=== PATIENT | male | born 1995 | race Caucasian/White ===

== ENCOUNTER 2024-03-14 10:07 | Emergency (ER) | payer SELFPAY ==
[2024-03-14] VITALS (7 sets, daily range): BP systolic 107–128; BP diastolic 60–85; PULSE 50–76; RESP 13–20; TEMP 36.4–36.9; O2SAT 96–100; BMI 23.1
[2024-03-14] MEDS: EPINEPHrine 1 MG/ML VIAL 0.3 MG IM ×2 (10:22→13:45)
[2024-03-14] MEDS: Famotidine/PF 20 MG/2 ML VIAL IVPUSH (10:23)
[2024-03-14] MEDS: diphenhydrAMINE HCL 50 MG/ML VIAL IVPUSH (10:23)
[2024-03-14] MEDS: methylPREDNISolone Sod Succ 125 MG/2 ML VIAL IVPUSH (10:23)
--- NOTE | 2024-03-14 10:24 | ED_ITS ---
HPI - General Adult General Chief complaint: Allergic Reaction Stated complaint: bee sting allergic reaction Time Seen by Provider: 03/14/24 10:20 Source: patient Mode of arrival: ambulatory Limitations: no limitations History of Present Illness ED Provider: garth [facility] narrative: Patient is a 28-year-old male with history of bee sting allergy presenting to the emergency department with complaint of lower lip swelling after being stung by a bee approximately 5 minutes prior to arrival. Patient states that he was doing marianna and drinking soda out of a can. When he picked up the soda can to take a drink, there was a be inside the can that he did not see and it stung him on the inside of his bottom lip. Patient swelling. He denies any shortness of breath, abdominal pain, nausea, chest pain, or hives. MD complaint: angioedema Onset (ago): minute(s) Location: mouth Treatments prior to arrival: none Related Data Previous Rx's ?Medication ?Instructions ?Recorded epinephrine 0.3 mg/0.3 mL 0.3 mg (0.3 mL) IM Q4H PRN 03/14/24 injection, auto-injector (EpiPen) anaphylaxis #2 ea prednisone 20 mg tablet 40 mg (2 x 20 mg) PO DAILY #10 tabs 03/14/24 Allergies Allergy/AdvReac Type Severity Reaction Status Date / Time bee pollen [bee stings] Allergy Facial Verified 03/14/24 10:11 Swelling Review of Systems Review of Systems: As per HPI. Yes all other systems are reviewed and are negative Constitutional: Constitutional: Reports as per HPI PMF Social History Social History Advance Directives: No Advance Directives Information Provided: No Physical Exam ED Vital Signs: Vital Signs - 24 hr 03/14/24 10:09 03/14/24 10:22 03/14/24 10:23 Temperature 97.6 F 97.9 F Pulse Rate 76 62 63 Respiratory Rate 16 18 Blood Pressure 128/85 126/72 126/72 Pulse Oximetry 96 99 Oxygen Delivery Method Room Air Room Air 03/14/24 12:00 03/14/24 13:45 03/14/24 14:49 Temperature 98.4 F 98.5 F Pulse Rate 63 50 66 Respiratory Rate 20 13 Blood Pressure 107/60 115/65 127/71 Pulse Oximetry 100 100 Oxygen Delivery Method Room Air Room Air BMI result Body Mass Index 23.1 Vital signs have been reviewed and appear to be correct. Blood pressure normal. Heart rate normal. Respiratory rate normal. Temperature normal. Oxygen saturation normal. Const General: cooperative, healthy appearing and no acute distress Orientation/consciousness: oriented to person, oriented to place, oriented to time and patient oriented x3 Limitations: no limitations [facility] Head: Yes normocephalic and Yes atraumatic Ears: external ears normal General nose exam: Normal external nose present Face and sinus: Yes face symmetric Mouth: oropharynx normal, moist mucous membranes, lip abnormal lower swelling (R>L) and tongue abnormal (mild swelling left distal tip) Throat: Yes posterior oropharynx normal, Yes uvula midline and No uvular edema Eyes Pupils: Equal, round and reactive pupils present Neck Neck: Yes normal visual inspection and Yes supple Resp Effort & Inspection: normal respiratory effort and able to speak in complete sentences Auscultation: clear to auscultation bilaterally Cardio Rate: regular rate Rhythm: regular rhythm Heart sounds: S1 normal heart sound present and S2 normal heart sound present GI Palpation (GI): Soft to palpation and nontender Auscultation: normoactive bowel sounds General: Yes no CVA tenderness Back/Spine/Pelvis Back: no CVA tenderness Skin General skin exam: elasticity normal and turgor normal Rashes: no rashes Neuro General: oriented to person, oriented to place, oriented to time, patient oriented x3, moves all extremities, no focal motor deficits and CN's II-XI intact bilaterally Cranial nerves: Yes Equal, round and reactive pupils present Cognition (Neuro): normal cognition Extrem General: Yes full ROM, Yes no pedal edema and Yes no calf tenderness Psych Mental Status: mental status grossly normal Affect: normal affect Thought process: Normal thought process present Medications Administered Discontinued Medications Generic Name Dose Route Start Last Admin Trade Name Freq PRN Reason Stop Dose Admin Diphenhydramine HCl 50 mg 03/14/24 10:20 03/14/24 10:23 Diphenhydramine Hcl 50 Mg/Ml Vial IVPUSH 03/14/24 10:21 50 mg ONCE ONE Administration Epinephrine 0.3 mg 03/14/24 10:20 03/14/24 10:22 Epinephrine 1 Mg/Ml Vial IM 03/14/24 10:21 0.3 mg STAT STA Administration Epinephrine 0.3 mg 03/14/24 13:32 03/14/24 13:45 Epinephrine 1 Mg/Ml Vial IM 03/14/24 13:33 0.3 mg STAT STA Administration Famotidine 20 mg 03/14/24 10:20 03/14/24 10:23 Famotidine/Pf 20 Mg/2 Ml Vial IVPUSH 03/14/24 10:21 20 mg ONCE ONE Administration Methylprednisolone Sodium Succinate 125 mg 03/14/24 10:20 03/14/24 10:23 Methylprednisolone Sod Succ 125 Mg/2 Ml Vial IVPUSH 03/14/24 10:21 125 mg ONCE ONE Administration Methylprednisolone Sodium Succinate 60 mg 03/14/24 13:32 03/14/24 13:44 Methylprednisolone Sod Succ 125 Mg/2 Ml Vial IVPUSH 03/14/24 13:33 60 mg ONCE ONE Administration Medical Decision Making Medical Decision Making [facility] Narrative: Patient is a 28-year-old male with history of bee sting allergy presenting to the emergency department with complaint of lower lip swelling after being stung by a bee approximately 5 minutes prior to arrival. On exam patient has significant angioedema to lower lip, R>L, mild swelling to left distal tip of tongue, is awake, A+Ox3, VS WNL, afebrile, normal neurological exam without focal deficits, physical exam findings as above. Patient brought directly into exam room and medicated with epinephrine, diphenhydramine, famotidine and methylprednisolone. Ice pack applied to lower lip. Given reported symptoms and physical exam findings, initial differential includes anaphylaxis, localized allergic reaction. 10:30 Edema progressing from right lower lip across to left lower lip, no upper lip edema, no uvula edema. 10:45 Minimal progression of edema, no new edema to tongue, no uvula edema, lungs clear throughout. 13:33 Patient continues to have lower lip angioedema but decreased swelling noted to tongue and patient reports he feels more comfortable. Evaluated with Dr. Daily at bedside. He recommends additional epi and solu-medrol, observation until angioedema improves. Patient placed on physician observation at this time. 15:00 Patient states symptoms have continued to improve and is requesting discha rge home. Significant improvement of lower lip angioedema, and tongue swelling, lungs clear. Dr. Daily agreeable with discharge. Prescriptions sent for Epi- pen as well as steroids. Advised patient to take daily antihistamine for the next week. Return precautions disucssed. Patient verbalized understanding of and agreement with plan. Observation care revealed that patient does not meet medical necessity for hospitalization. Final disposition discussed with patient. The patient completed observation care at 15:02, total time in observation care was 1.5 hours. Differential Diagnosis Differential Diagnoses: The differential diagnosis associated with the presentation includes As per MDM. Admission/Observation Consideration of admission/observation: Escalation of care including admission/observation considered Patient would have been admitted to the hospital had their work up had any findings where hospital admission was appropriate and their clinical presentation warranted hospital admission. External Record Review External record reviewed: Inpatient record, Office record and Outpatient record Prescription Management I considered prescription management with: Other Discharge Plan Discharge Clinical Impression: Angioedema, Anaphylaxis Patient Disposition: Home, Self-Care Instructions: Insect Bite or Sting (ED), Anaphylaxis (ED), Angioedema (ED) Additional Instructions: You were evaluated in the emergency department today for an allergic reaction following a bee sting. Your symptoms improved with medications while in the emergency department. You are being prescribed an EpiPen for home. You are also being prescribed a course of steroids to decrease inflammation. We recommend that you take a daily antihistamine such as cetirizine (Zyrtec) or loratadine (Claritin) for the next week. Return to the emergency department or call 911 immediately if you develop worsening swelling to your lips or tongue, difficulty breathing or shortness of breath, chest pain, abdominal pain, nausea or vomiting, rash or any other concerning symptoms. Prescriptions: New epinephrine [EpiPen] 0.3 mg/0.3 mL auto-injector 0.3 mg IM Q4H PRN (Reason: anaphylaxis) Qty: 2 0RF prednisone 20 mg tablet 40 mg PO DAILY Qty: 10 0RF Print Language: Estonian
--- NOTE | 2024-03-14 11:43 | PC.NURSE ---
multiple nursing checks made, pt stating he is starting to feel better, swelling does not seem to be progressing at this time
--- NOTE | 2024-03-14 12:26 | MHC.EDTECH ---
This tech checked pt vital signs, pt resting quietly, no appearing distress, no SOB, denied difficulty breathing, call lopez within reach.
--- NOTE | 2024-03-14 13:40 | MHC.EDTECH ---
This tech went to check on pt status, pt resting quietly, stated he feels way better . Call lopez within reach.
[2024-03-14] MEDS: methylPREDNISolone Sod Succ 125 MG/2 ML VIAL 60 MG IVPUSH (13:44)
== END 2024-03-14 15:29 | disposition home or self-care (01) ==
PROVIDERS: Emergency Provider Student in an Organized Health Care Education/Training Program
DX: T78.3XXA Angioneurotic edema, initial encounter (principal); T78.2XXA Anaphylactic shock, unspecified, initial encounter; X58.XXXA Exposure to other specified factors, initial encounter
CPT/HCPCS: 96372; 99284; J0171; J1200; J2919

== ENCOUNTER 2024-03-26 07:18 | Emergency (ER) | payer SELFPAY ==
[2024-03-26 07:24] VITALS: BP 121/68; PULSE 71; RESP 16; TEMP 36.8; O2SAT 97; BMI 23.5
--- NOTE | 2024-03-26 07:34 | PC.NURSE ---
patient present ambulatory with steady gait through external triage, states he was stung by a bee at work yesterday, used epipen however woke up this morning with swelling to his face still. patient states he has not used his epi pen since yesterday, denies any airway obstruction or shortness of breath, patient voice clear, no hoarsness noted, no tongue swelling, patient states he took motrin for the pain in his face, but has not taken any other medications for his reaction. patient states he was also stung by a bee on sunday and was seen in this ED for the same, states the swelling didn't completely go away but now it is worse again after being stung yesterday. 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 18g PIV placed in RAC. awaiting MD hickey
--- NOTE | 2024-03-26 07:45 | ED_ITS ---
HPI - Allergic Reaction General Chief complaint: Allergic Reaction Stated complaint: swelling in neck and eye. 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 Yesterday at work he was stung on L side of spiritism and administered epi pen. He states he it worked except his L eye and side of face is still swollen. He denies dyspnea, difficulty swallowing or breathing, voice changes. He needs another epi pen. MD complaint: facial swelling Onset (ago): day(s) (1) Exposure: insect bite Symptoms: facial swelling Severity: moderate Treatment prior to arrival: epinephrine Previous Allergic Reaction History: anaphylaxis Related Data Previous Rx's ?Medication ?Instructions ?Recorded epinephrine 0.3 mg/0.3 mL 0.3 mg (0.3 mL) IM Q4H PRN 03/14/24 injection, auto-injector (EpiPen) anaphylaxis #2 ea prednisone 20 mg tablet 40 mg (2 x 20 mg) PO DAILY #10 tabs 03/14/24 cetirizine 10 mg tablet 10 mg PO DAILY PRN allergy 03/26/24 symptoms #30 tabs epinephrine 0.3 mg/0.3 mL 0.3 mg (0.3 mL) IM Q10M PRN 03/26/24 injection, auto-injector anaphylaxis #2 ea prednisone 20 mg tablet 40 mg (2 x 20 mg) PO DAILY 5 days 03/26/24 #10 tabs Allergies Allergy/AdvReac Type Severity Reaction Status Date / Time bee pollen [bee stings] Allergy Facial Verified 03/26/24 07:27 Swelling Review of Systems Review of Systems: Constitutional : No Fever, No Chills, No Fatigue ENT/Mouth : No sore throat, No Rhinorrhea, pos L side of face swelling Eyes: No Eye Pain, pos Swelling, No Redness Cardiovascular : No Chest Pain, No SOB, No Dyspnea on Exertion Respiratory : No Cough, No Sputum Gastrointestinal : No Nausea, No Vomiting, No Diarrhea, No abdominal Pain Genitourinary : No Dysuria, No Urinary Frequency, No Hematuria, Musculoskeletal : No joint pain, No Myalgias, No Joint Swelling Skin : No Skin Lesions, No rash Neuro : No Weakness, No Numbness, No Dizziness, no Headache All other systems reviewed and are negative [facility] Past Medical History Attestation statement: The following information was validated with the patient. Source: old records reviewed Medical History Allergic reaction Social History Social History Smoked in Last 30 Days: Yes Substance Use Type: Marijuana Physical Exam ED Vital Signs: Vital Signs - 24 hr 03/26/24 07:24 Temperature 98.3 F Pulse Rate 71 Respiratory Rate 16 Blood Pressure 121/68 Pulse Oximetry 97 Oxygen Delivery Method Room Air BMI result Body Mass Index 23.5 Appearance: Alert. Oriented X3. No acute distress. Eyes: Pupils equal, round and reactive to light. swelling L periorbital eye moderate bite felt on L spiritism area no redness, heat, drainage from eye no signs of infection ENT: Pharynx normal. no swelling Neck: Normal inspection. Neck supple. CVS: Normal heart rate and rhythm. Pulses normal. Respiratory: No respiratory distress. Breath sounds normal. Abdomen: Soft and nontender. Skin: Skin warm and dry. Normal skin color. Normal skin turgor. Extremities: No lower extremity edema. No calf ttp Neuro: Oriented X 3. No motor deficit. No sensory deficit. Medical Decision Making Medical Decision Making [facility] Narrative: 28 yo male with localized swelling near bee sting no resp issues no airway issues not toxic will start on zyrtec and prednisone DC on epi pen discussed reasons to return and to no get stung again - he is aware of plan. stable for DC no signs of infection Differential Diagnosis Differential Diagnoses: The differential diagnosis associated with the presentation includes localized reaction no signs of infection at this time Independent Historian Clinical information obtained from an independent historian. History obtained from or confirmed by: Spouse External Record Review External record reviewed: Outpatient record Prescription Management I considered prescription management with: Other (epi pen zyrtec prednisone) Discharge Plan Discharge Clinical Impression: Allergic reaction Patient Disposition: Home, Self-Care Instructions: General Allergic Reaction (ED) Additional Instructions: it is important you do not get stung in the next 48 hours starting window tomorrow return here for increased redness, fevers, yellow drainage from the eye start medications this evening around dinner carry epi pen with you at all time Prescriptions: New cetirizine 10 mg tablet 10 mg PO DAILY PRN (Reason: allergy symptoms) Qty: 30 0RF prednisone 20 mg tablet 40 mg PO DAILY 5 Days Qty: 10 0RF epinephrine 0.3 mg/0.3 mL auto-injector 0.3 mg IM Q10M PRN (Reason: anaphylaxis) Qty: 2 0RF Rx Instructions: for 2 doses No Action epinephrine [EpiPen] 0.3 mg/0.3 mL auto-injector 0.3 mg IM Q4H PRN (Reason: anaphylaxis) Qty: 2 0RF prednisone 20 mg tablet 40 mg PO DAILY Qty: 10 0RF Stand Alone Forms: Work/School Release Print Language: Sami
[2024-03-26] MEDS: methylPREDNISolone Sod Succ 125 MG/2 ML VIAL 60 MG IVPUSH (07:50)
[2024-03-26 07:54] VITALS: BP 113/68; PULSE 74; RESP 17; TEMP 36.9; O2SAT 97
[2024-03-26 07:55] VITALS: BP 113/68; PULSE 74; RESP 17; O2SAT 97
== END 2024-03-26 07:58 | disposition home or self-care (01) ==
PROVIDERS: Emergency Provider Emergency Medicine
DX: T63.441A Toxic effect of venom of bees, accidental (unintentional), initial encounter (principal); Y92.9 Unspecified place or not applicable; R22.1 Localized swelling, mass and lump, neck; Z79.899 Other long term (current) drug therapy
CPT/HCPCS: 96374; 99284; J2919

== ENCOUNTER 2024-07-20 14:21 | Emergency (ER) | payer MEDICAID, SELFPAY ==
--- NOTE | ~2024-07-20 | XR_ITS ---
EXAMINATION: XR KNEE, LEFT CLINICAL INFORMATION: injury, pain COMPARISON: None available. TECHNIQUE: Four views of the left knee. FINDINGS: No fracture or joint effusion. Alignment is anatomic. Joint spaces are maintained. No abnormal soft tissue calcification. XR/XR knee LT 3V IMPRESSION: Normal left knee. Electronically signed by: Philly Butler MD 07/20/2024 03:41 PM EST
[2024-07-20 14:39] VITALS: BP 130/72; PULSE 96; RESP 18; TEMP 36.8; O2SAT 98; BMI 27.4
--- NOTE | 2024-07-20 14:40 | ED.LOWEXIN ---
HPI - Extremity Injury (Lower) General Chief Complaint: Extremity Injury, Lower Stated Complaint: knee inj Time Seen by Provider: 07/20/24 16:25 Source: patient Mode of arrival: ambulatory Limitations: no limitations History of Present Illness ED Provider: Tyrone Barrientos HPI Narrative: 29-year-old male presents to ED for right knee pain since last night. Patient states he was playing softball at night and while going for the ball on another player slid into his left knee and made his left knee buckled. Patient states ever since pain not able to bear weight on knee. Patient states also some ecchymosis Related Data Previous Rx's ?Medication ?Instructions ?Recorded epinephrine 0.3 mg/0.3 mL 0.3 mg (0.3 mL) IM Q4H PRN 03/14/24 injection, auto-injector (EpiPen) anaphylaxis #2 ea prednisone 20 mg tablet 40 mg (2 x 20 mg) PO DAILY #10 tabs 03/14/24 cetirizine 10 mg tablet 10 mg PO DAILY PRN allergy 03/26/24 symptoms #30 tabs epinephrine 0.3 mg/0.3 mL 0.3 mg (0.3 mL) IM Q10M PRN 03/26/24 injection, auto-injector anaphylaxis #2 ea prednisone 20 mg tablet 40 mg (2 x 20 mg) PO DAILY 5 days 03/26/24 #10 tabs naproxen 500 mg tablet 500 mg PO BID PRN pain 7 days #14 07/20/24 tabs Allergies Allergy/AdvReac Type Severity Reaction Status Date / Time bee pollen [bee stings] Allergy Facial Verified 07/20/24 14:41 Swelling Review of Systems Review of Systems: Left knee pain Yes all other systems are reviewed and are negative PMFSH Past Medical History Medical History Allergic reaction Social History Social History Substance Use Type: Marijuana Advance Directives: No Advance Directives Information Provided: No Physical Exam Vital Signs: Vital Signs: Last Vital Signs Temp 98.3 F 07/20/24 17:02 Pulse 96 07/20/24 17:02 Resp 18 07/20/24 17:02 BP 130/72 07/20/24 17:02 Pulse Ox 98 07/20/24 17:02 O2 Del Method Room Air 07/20/24 17:02 BMI result Body Mass Index 27.4 Const: General: cooperative, healthy appearing, comfortable, no acute distress, well developed, alert, awake and Physically active Orientation/consciousness: patient oriented x3 HEENT: Head: Yes normal to inspection, Yes No palpable skull fracture present and Yes normocephalic Eyes: General: appearance normal, both eyes and all related structures Neck: Neck: Yes normal visual inspection, Yes full ROM, Yes no lymphadenopathy, Yes no meningeal signs, Yes trachea midline, Yes supple, No anterior neck swelling and No tender Chest: Chest palpation & inspection: normal inspection of the chest and normal palpation of entire chest wall Resp: Effort & Inspection: normal respiratory effort and able to speak in complete sentences Auscultation: clear to auscultation bilaterally Cardio: Jugular venous distension: no JVD Heart sounds: S1 normal heart sound present and S2 normal heart sound present GI: Inspection: Yes normal to inspection Palpation (GI): Soft to palpation, not firm, nontender, no guarding and not rigid : General: Yes no CVA tenderness Back/Spine/Pelvis: Back: no CVA tenderness and No back tenderness Skin: General skin exam: no rashes or lesions noted, elasticity normal and turgor normal Neuro: General: patient oriented x3, gait normal, tone normal, moves all extremities, Normal light touch and pain sensation, no meningeal signs, no focal motor deficits, CN's II-XI intact bilaterally and normal sensation to monofilament Extrem: General: Yes normal to inspection, Yes full ROM and Yes capillary refill normal Knee images: 1. Positive for tenderness ecchymosis on palpation. Knee in place. Negative for stiffness, erythema, or warmth. Rest of extremity normal. Motor/neuro/vascular exam Psych: Appearance: grossly normal, well kempt and not disheveled Course Course Course Narrative: This is a rapid medical exam. Deferred additional HPI, ROS, PE to primary provider. 29 yo male here with left knee after direct hit while playing softball. Will check x-rays LOULOU Black APRN Medications Administered Discontinued Medications Generic Name Dose Route Start Last Admin Trade Name Freq PRN Reason Stop Dose Admin Ketorolac Tromethamine 30 mg 07/20/24 16:49 07/20/24 16:54 Ketorolac Tromethamine 30 Mg/Ml Vial IM 07/20/24 16:50 30 mg ONCE ONE Administration Prednisone 40 mg 07/20/24 16:49 07/20/24 16:55 Prednisone 20 Mg Tablet PO 07/20/24 16:50 40 mg ONCE ONE Administration Medical Decision Making Medical Decision Making MDM Narrative: 29-year-old male presents to the ED for left knee pain after injury. Patient denies any headache or any other complaints. Knee and rest of extremity exam negative for signs of septic joint, compartment syndrome, DVT, arterial occlusion, osteomyelitis, cellulitis, or necrotizing fasciitis. Rest of extremity normal. Knee x-ray negative for any fracture. Patient explained he most likely will need outpatient MRI to rule out any ligament meniscus tear. Patient explained worrisome signs and informed to return to the ED immediately. Differential Diagnosis Differential Diagnoses: The differential diagnosis associated with the presentation includes (Knee sprain, knee fracture knee dislocation) Admission/Observation Consideration of admission/observation: Escalation of care including admission/observation considered Independent Historian Clinical information obtained from an independent historian. History obtained from or confirmed by: Other (Patient) External Record Review External record reviewed: Other (Prior visits) Prescription Management I considered prescription management with: Pain Medication Discharge Plan Discharge Clinical Impression: Knee sprain Patient Disposition: Home, Self-Care Instructions: Knee Sprain (ED), Crutch Instructions (ED), How to Use an Elastic Bandage (ED), R.I.C.E. Treatment (ED) Additional Instructions: X-rays came back negative for fractures. Most likely you will need MRI to rule out any meniscus, tendon, or ligament injury in your knee. Return to the ED immediately for worsening swelling, bluish discoloration, redness, warmth, stiffness, leg swelling, calf pain, red streaks, fever, chills, chest pain, shortness of breath, or any other concerning symptoms. Recommend follow up with the primary care provider. FINDINGS: No fracture or joint effusion. Alignment is anatomic. Joint spaces are maintained. No abnormal soft tissue calcification. XR/XR knee LT 3V IMPRESSION: Normal left knee. Electronically signed by: Philly Butler MD 07/20/2024 03:41 PM [facility] Prescriptions: New naproxen 500 mg tablet 500 mg PO BID PRN (Reason: pain) 7 Days Qty: 14 0RF No Action epinephrine [EpiPen] 0.3 mg/0.3 mL auto-injector 0.3 mg IM Q4H PRN (Reason: anaphylaxis) Qty: 2 0RF prednisone 20 mg tablet 40 mg PO DAILY Qty: 10 0RF cetirizine 10 mg tablet 10 mg PO DAILY PRN (Reason: allergy symptoms) Qty: 30 0RF prednisone 20 mg tablet 40 mg PO DAILY 5 Days Qty: 10 0RF epinephrine 0.3 mg/0.3 mL auto-injector 0.3 mg IM Q10M PRN (Reason: anaphylaxis) Qty: 2 0RF Rx Instructions: for 2 doses Referrals: [facility] [Provider Group] (Knee sprain) Stand Alone Forms: Work/School Release Interventions: ED Discharge Assessment Last Done: 07/20/24 17:02 Discharge Date/Time: 07/20/24 17:02 Print Language: Lithuanian
[2024-07-20] MEDS: Ketorolac Tromethamine 30 MG/ML VIAL IM (16:54)
[2024-07-20] MEDS: predniSONE 20 MG TABLET 40 MG PO (16:55)
[2024-07-20 17:02] VITALS: BP 130/72; PULSE 96; RESP 18; TEMP 36.8; O2SAT 98
== END 2024-07-20 17:02 | disposition home or self-care (01) ==
PROVIDERS: Emergency Provider Emergency Medicine
DX: S83.92XA Sprain of unspecified site of left knee, initial encounter (principal); M25.562 Pain in left knee; Y93.64 Activity, baseball; Y92.318 Other athletic court as the place of occurrence of the external cause; Y99.8 Other external cause status
CPT/HCPCS: 73562; 96372; 99283; 99284; J1885

== ENCOUNTER 2024-08-13 02:50 | Emergency (ER) | payer MEDICAID, SELFPAY ==
[2024-08-13 03:02] VITALS: BP 165/47; PULSE 100; PULSE 97; RESP 19; TEMP 37.1; O2SAT 98; O2SAT 99; BMI 25.0
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
--- NOTE | 2024-08-13 03:23 | MHC.EDTECH ---
Patient BIBA,vitals taken,security assisted with a crisis pipe changer,all belongings locked in the closet on shelf 1, patient urinated,urine sample and labs obtained and sent to lab,pt is calm and cooperative,1:1 sitter at bedside for safety
[2024-08-13 03:38] LABS: MANUAL DIFF FLAG NO
[2024-08-13 03:39] LABS: Basophils Absolute Auto 0.1 X10*3/uL (0.0-0.2); Basophils Percent Auto 0.6 % (0-2); Eosinophils Absolute Auto 0.1 X10*3/uL (0.0-0.4); Eosinophils Percent Auto 0.8 % (0-4); Hematocrit 44.5 % (42.0-52.0); Hemoglobin 15.4 g/dl (14.0-18.0); Imm Gran Abs Auto 0.03 X10*3/uL (0.00-0.03); Imm Gran Pct Auto 0.3 % (0.0-0.4); Lymphocytes Absolute Auto 2.2 X10*3/uL (1.2-4.9); Lymphocytes Percent Auto 24.6 % (20-40); Mean Corpuscular HGB Conc 34.6 g/dl (31.0-36.0); Mean Corpuscular Hemoglobin 31.7 pg (27.0-33.0); Mean Corpuscular Volume 91.6 fL (80.0-98.0); Mean Platelet Volume 10.9 fL (9.4-12.4); Monocytes Absolute Auto 0.5 X10*3/uL (0.1-1.2); Monocytes Percent Auto 5.6 % (2-11); Neutrophils Percent Auto 68.1 % (45-73); Platelet Count 230 X10*3/uL (160-400); Red Blood Count 4.86 X10*6/uL (4.60-5.80); Red Cell Distribution Width 13.5 % (11.0-16.0); White Blood Count 8.8 X10*3/uL (4.8-10.8)
[2024-08-13 03:53] LABS: Alanine Aminotransferase 16 U/L (0-40); Albumin Level 4.5 g/dL (3.5-5.0); Alkaline Phosphatase 85 U/L (39-117); Amphetamine Screen Urine Not Detected (Not Detect); Anion Gap 16 (12-20); Aspartate Amino Transferase 32 U/L (5-37); Barbiturates, Urine Not Detected (Not Detect); Benzodiazepines Screen Urine Not Detected (Not Detect); Bilirubin Total 0.2 mg/dL (0.0-1.0); Blood Urea Nitrogen 12 mg/dL (9-16); Buprenorphine Scr Not Detected (Not Detect); Cannabinoid Screen Urine POSITIVE (Not Detect); Carbon Dioxide 20 mmol/L (22-29); Chloride 110 mmol/L (96-108); Cocaine Screen Urine Not Detected (Not Detect); Creatinine Clr Calc Pharmacy 111.5; Estimated Glomerular Filt Rate > 60; Ethanol 215 mg/dL; Fentanyl, urine Not Detected (Not Detect); Glucose Random 103 mg/dL (60-115); Methadone Screen, Urine Not Detected (Not Detect); Opiate Screen Urine Not Detected (Not Detect); Oxycodone Screen Urine Not Detected (Not Detect); Phencyclidine Screen Urine Not Detected (Not Detect); Potassium 3.5 mmol/L (3.3-5.1); Sodium 142 mmol/L (135-145); Total Protein 7.2 g/dL (6.5-8.0)
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
[2024-08-13 06:55] VITALS: BP 110/70; PULSE 80; RESP 14; TEMP 36.6; O2SAT 98
--- NOTE | 2024-08-13 09:02 | PC.NURSE ---
seen by care team, awaiting dispo
--- NOTE | 2024-08-13 09:19 | PHA.MEDREC ---
Pharmacy Consult ? Medication Reconciliation Pharmacy has completed the medication reconciliation. Patient confirmed they are no longer taking any medications at home including OTC
[2024-08-13 10:32] VITALS: BP 110/70; PULSE 80; RESP 14; TEMP 36.6; O2SAT 98
--- NOTE | 2024-08-14 09:22 | MHC.CARE ---
CC referral complete.
== END 2024-08-13 10:33 | disposition home or self-care (01) ==
PROVIDERS: Emergency Medicine Emergency Medical Services; Emergency Provider Emergency Medicine
DX: F10.920 Alcohol use, unspecified with intoxication, uncomplicated (principal); Y90.7 Blood alcohol level of 200-239 mg/100 ml; R45.851 Suicidal ideations; F12.90 Cannabis use, unspecified, uncomplicated; Z72.89 Other problems related to lifestyle; Z63.8 Other specified problems related to primary support group; Z79.899 Other long term (current) drug therapy
CPT/HCPCS: 36415; 80053; 80307; 85025; 99285; S9485

== ENCOUNTER 2025-01-18 09:47 | Emergency (ER) | payer SELFPAY ==
--- NOTE | ~2025-01-18 | CT_ITS ---
CLINICAL HISTORY: L flank pain CT Abdomen and Pelvis WO Contrast COMPARISON: None FINDINGS: Normal liver. Normal spleen. Calculus in the mid to distal left ureter measuring 2 mm (series 4, image 525). No hydronephrosis at the time of the study. Mild left perinephric fat stranding. Unremarkable right kidney. Normal adrenal glands. Normal pancreas. No visible cholelithiasis. No biliary dilation. No evidence of bowel obstruction or colitis. Normal appendix. Poorly distended bladder with diffusely thickened paige. No ascites. No pneumoperitoneum. No lymphadenopathy. No acute fracture. No abdominal aortic aneurysm. IMPRESSION: Mid to distal left ureteral calculus. No hydronephrosis at the time of the study. Bladder wall thickening, which could be due to underdistention or cystitis. This document has been electronically signed by: Jose Hooker MD on 01/18/2025 14:49:17
[2025-01-18 09:58] VITALS: BP 114/74; PULSE 81; RESP 18; TEMP 36.6; O2SAT 98; BMI 23.5
[2025-01-18 10:17] LABS: MANUAL DIFF FLAG NO
[2025-01-18 10:19] LABS: Basophils Absolute Auto 0.1 X10*3/uL (0.0-0.2); Basophils Percent Auto 0.4 % (0-2); Eosinophils Absolute Auto 0.1 X10*3/uL (0.0-0.4); Eosinophils Percent Auto 0.4 % (0-4); Hematocrit 41.7 % (42.0-52.0); Hemoglobin 14.1 g/dl (14.0-18.0); Imm Gran Abs Auto 0.04 X10*3/uL (0.00-0.03); Imm Gran Pct Auto 0.3 % (0.0-0.4); Lymphocytes Absolute Auto 2.1 X10*3/uL (1.2-4.9); Mean Corpuscular HGB Conc 33.8 g/dl (31.0-36.0); Mean Corpuscular Hemoglobin 31.3 pg (27.0-33.0); Mean Corpuscular Volume 92.7 fL (80.0-98.0); Mean Platelet Volume 10.4 fL (9.4-12.4); Monocytes Absolute Auto 1.3 X10*3/uL (0.1-1.2); Monocytes Percent Auto 10.2 % (2-11); Neutrophils Absolute Auto 8.7 x10*3/uL (2.0-8.3); Neutrophils Percent Auto 71.7 % (45-73); Platelet Count 270 X10*3/uL (160-400); Red Cell Distribution Width 13.5 % (11.0-16.0); White Blood Count 12.2 X10*3/uL (4.8-10.8)
[2025-01-18 10:20] LABS: Appearance Urine Turbid; Color Urine Dark Yellow; Glucose Urine UA Negative (Negative); Leukocyte Esterase Urine Large (3+) (Negative); Nitrite Urine Positive (Negative); PH 6.5 (5.0-9.0); UMIC TRIGGER UACC YES; Urine Blood Large (3+) (Negative); Urine Ketones Trace mg/dL (Negative); Urine Protein 300 (3+) mg/dL (Neg-Trace)
[2025-01-18 10:30] LABS: Anion Gap 17 (12-20); Blood Urea Nitrogen 11 mg/dL (9-16); Calcium 9.6 mg/dL (8.4-10.2); Carbon Dioxide 24 mmol/L (22-29); Chloride 104 mmol/L (96-108); Creatinine Clr Calc Pharmacy 110.3; Estimated Glomerular Filt Rate > 60; Glucose Random 93 mg/dL (60-115); Sodium 141 mmol/L (135-145)
[2025-01-18 10:40] LABS: Bacteria Urine 2+ (None Seen); Hyaline Casts Urine 0-2 /LPF (0-2); RBC Urine >20 /HPF (0-2); UACC Culture Trigger YES; WBC Clumps Urine Present; WBC Urine >50 /HPF (0-5)
[2025-01-18 12:09] VITALS: BP 117/70; PULSE 71; RESP 16; O2SAT 98
--- NOTE | 2025-01-18 12:22 | ED.MALEGU ---
HPI - Male Genitourinary General Chief complaint: Urogenital-Male Stated complaint: blood in urine Time Seen by Provider: 01/18/25 12:21 Source: patient and RN notes reviewed Mode of arrival: ambulatory Limitations: no limitations History of Present Illness ED Provider: Annie Fofana PA-C [facility] Narrative: this is a 29-year-old male, with no known medical problems, who presents emergency department with concerns of left-sided flank pain, and hematuria. Patient states that approximately 4 days ago he developed slight dysuria, as well as left-sided flank pain. Patient denies any fevers or chills. Denies history of similar symptoms in the past. No penile discharge. He is sexually active, denies risk of STI. He does endorse slight nausea, no vomiting. No chest pain, shortness for breath, diarrhea constipation. No reported testicular pain or swelling. No other complaints or concerns at this time. MD Complaint: dysuria Onset (ago): day(s) Duration: constant Location: left flank Radiation: abdomen Severity: moderate Quality: aching Relieving factors: none Exacerbating factors: urination, palpation and movement Associated symptoms: Reports dysuria and nausea/vomiting Related Data Sexually active: Yes Previous Rx's ?Medication ?Instructions ?Recorded acetaminophen 500 mg tablet 1,000 mg (2 x 500 mg) PO Q6H PRN 01/18/25 (Tylenol Extra Strength) pain #30 tabs cefuroxime axetil 500 mg tablet 500 mg PO BID 7 days #14 tabs 01/18/25 ketorolac 10 mg tablet 10 mg PO Q8H 3 days #9 tabs 01/18/25 tamsulosin 0.4 mg capsule (Flomax) 0.4 mg PO DAILY 10 days #10 caps 01/18/25 Allergies Allergy/AdvReac Type Severity Reaction Status Date / Time bee pollen [bee stings] Allergy Facial Verified 01/18/25 10:01 Swelling Review of Systems Review of Systems: Yes all other systems are reviewed and are negative Constitutional: Constitutional: Reports as per [facility] Past Medical History Medical History Allergic reaction Social History Social History Alcohol intake: current Alcohol intake frequency: does not drink Substance Use Type: Marijuana Physical Exam Vital Signs: Vital Signs: Last Vital Signs Temp 99.3 F 01/18/25 16:01 Pulse 72 01/18/25 16:01 Resp 16 01/18/25 16:01 BP 122/74 01/18/25 16:01 Pulse Ox 98 01/18/25 16:01 O2 Del Method Room Air 01/18/25 16:01 BMI result Body Mass Index 23.5 Const: General: cooperative, comfortable and no acute distress Orientation/consciousness: patient oriented x3 Limitations: no limitations HEENT: Head: Yes normal to inspection, Yes normocephalic and Yes atraumatic Ears: hearing grossly normal bilaterally General nose exam: Normal external nose present Face and sinus: Yes normal facial exam Mouth: Normal oral and palatal mucosa present, oropharynx normal and moist mucous membranes Throat: Yes posterior oropharynx normal Eyes: General: appearance normal, both eyes and all related structures Eyelids: Yes eyelids normal Conjunctivae: conjunctivae normal Sclerae: sclerae normal Pupils: Equal, round and reactive pupils present EOM: EOMs intact bilaterally Neck: Neck: Yes normal visual inspection, Yes full ROM and Yes no lymphadenopathy Lymphatic: no lymphadenopathy noted Chest: Chest palpation & inspection: normal inspection of the chest Resp: Effort & Inspection: normal respiratory effort and able to speak in complete sentences Auscultation: clear to auscultation bilaterally, no crackles, no rales, no rhonchi and no wheezes Cardio: Rate: regular rate Rhythm: regular rhythm Heart sounds: S1 normal heart sound present and S2 normal heart sound present GI: Other: Abdomen is soft, nontender, nondistended. Inspection: Yes normal to inspection : Other: Left-sided CVA tenderness on examination. Pain extending into the left flank. No overlying rashes or skin changes. Skin: General skin exam: no rashes or lesions noted Trauma: no lacerations or abrasions Wounds: no wounds Neuro: General: patient oriented x3 and moves all extremities Cranial nerves: Yes Equal, round and reactive pupils present Extrem: General: Yes normal to inspection Right upper extremity: normal to inspection Left upper extremity: normal to inspection Right lower extremity: normal to inspection Left lower extremity: normal to inspection Medications Administered Discontinued Medications Generic Name Dose Route Start Last Admin Trade Name Freq PRN Reason Stop Dose Admin Ceftriaxone Sodium 1 gm 01/18/25 12:37 01/18/25 13:25 Ceftriaxone Sodium 1 Gm Vial IVPUSH 01/18/25 12:38 1 gm ONCE ONE Administration Sodium Chloride 2,000 mls @ 999 mls/hr 01/18/25 12:37 01/18/25 13:05 Ns IV 01/18/25 14:37 999 mls/hr .Q2H1M ONE Administration Ketorolac Tromethamine 15 mg 01/18/25 12:37 01/18/25 13:04 Ketorolac Tromethamine 15 Mg/Ml Vial IVPUSH 01/18/25 12:38 15 mg ONCE ONE Administration Ondansetron HCl 4 mg 01/18/25 12:37 01/18/25 13:04 Ondansetron Hcl 4 Mg/2 Ml Vial IVPUSH 01/18/25 12:38 4 mg ONCE ONE Administration Medical Decision Making Medical Decision Making [facility] Narrative: This is a 29-year-old male who presents emergency department with concerns of dysuria and left-sided flank pain which started several days ago. On arrival, vital signs within normal limits. He is speaking in full sentences under no acute distress. Labs were obtained prior to my evaluation, he does have a slight white blood cell count at 12.2, and urine appears to be infected with large blood, positive nitrites, leuk esterases, wbc's and rbc's with 2+ bacteria seen. He is sexually active, will send out for gonorrhea and chlamydia testing. Lactic, cultures, and IV ceftriaxone was ordered. 1539 - Lactic 0.6. vital signs remained stable. patient's CT scan returns revealing mid to distal left ureteral calculus measuring 2 mm with left perinephric fat stranding with no hydro. Patient re-evaluated, feeling much better. Dr. Vivar, urology reporting that if he is able to tolerate p.o., he can be discharged with pain medications, tamsulosin, prednisone and antibiotics. The urology office will triage him Sunday or Sunday. Patient able to tolerate p.o. in the department today. He is feeling well, no longer in any pain. Given this, he will be discharged with strict return precautions. He understands and agrees with plan. Patient stable for discharge. Differential Diagnosis Differential Diagnoses: The differential diagnosis associated with the presentation includes UTI, pyelonephritis, obstructive uropathy, nephrolithiasis Lab Data [facility] Lab Attestation statement: I reviewed the patient's lab results. see MDM and course 01/18/25 10:14 01/18/25 10:14 Labs: Lab Results 01/18/25 01/18/25 01/18/25 Range/Units 10:11 10:14 13:07 WBC 12.2 H (4.8-10.8) X10*3/uL RBC 4.50 L (4.60-5.80) X10*6/uL Hgb 14.1 (14.0-18.0) g/dl Hct 41.7 L (42.0-52.0) % MCV 92.7 (80.0-98.0) fL MCH 31.3 (27.0-33.0) pg MCHC 33.8 (31.0-36.0) g/dl RDW 13.5 (11.0-16.0) % Plt Count 270 (160-400) X10*3/uL MPV 10.4 (9.4-12.4) fL Immature Gran % (Auto) 0.3 (0.0-0.4) % Neut % (Auto) 71.7 (45-73) % Lymph % (Auto) 17.0 L (20-40) % [place] % (Auto) 10.2 (2-11) % Eos % (Auto) 0.4 (0-4) % Baso % (Auto) 0.4 (0-2) % Lymph # (Auto) 2.1 (1.2-4.9) X10*3/uL [place] # (Auto) 1.3 H (0.1-1.2) X10*3/uL Eos # (Auto) 0.1 (0.0-0.4) X10*3/uL Baso # (Auto) 0.1 (0.0-0.2) X10*3/uL Abs Immat Gran (auto) 0.04 H (0.00-0.03) X10*3/uL Absolute Neuts (auto) 8.7 H (2.0-8.3) x10*3/uL Absolute Nucleated RBC 0.000 (0.0-0.012) X10*3/uL Nucleated RBC % (auto) 0.0 (0.0-0.2) /100WBC Sodium 141 (135-145) mmol/L Potassium 4.0 (3.3-5.1) mmol/L Chloride 104 (96-108) mmol/L Carbon Dioxide 24 (22-29) mmol/L Anion Gap 17 (12-20) BUN 11 (9-16) mg/dL Creatinine 0.94 (0.5-1.4) mg/dL Estim Creat Clear Calc 110.3 Estimated GFR > 60 Random Glucose 93 (60-115) mg/dL Lactic Acid 0.6 (0.5-2.0) mmol/L Calcium 9.6 D (8.4-10.2) mg/dL Urine Color Dark Yellow Urine Appearance Turbid Urine pH 6.5 (5.0-9.0) Ur Specific [place] 1.020 (1.005-1.025) Urine Protein 300 (3+) H (Neg-Trace) mg/dL Urine Glucose (UA) Negative (Negative) mg/dL Urine Ketones Trace (Negative) mg/dL Urine Blood Large (3+) H (Negative) Urine Nitrite Positive H (Negative) Ur Leukocyte Esterase Large (3+) H (Negative) Urine RBC >20 H (0-2) /HPF Urine WBC >50 H (0-5) /HPF Urine WBC Clumps Present Ur Squamous Epith Cells 3-5 (0-2) /HPF Urine Bacteria 2+ (None Seen) Hyaline Casts 0-2 (0-2) /LPF Chlam trachomat DNA PCR (Not Detect.) N.gonorrhoeae DNA (PCR) (Not Detect.) 01/18/25 Range/Units 13:32 WBC (4.8-10.8) X10*3/uL RBC (4.60-5.80) X10*6/uL Hgb (14.0-18.0) g/dl Hct (42.0-52.0) % MCV (80.0-98.0) fL MCH (27.0-33.0) pg MCHC (31.0-36.0) g/dl RDW (11.0-16.0) % Plt Count (160-400) X10*3/uL MPV (9.4-12.4) fL Immature Gran % (Auto) (0.0-0.4) % Neut % (Auto) (45-73) % Lymph % (Auto) (20-40) % [place] % (Auto) (2-11) % Eos % (Auto) (0-4) % Baso % (Auto) (0-2) % Lymph # (Auto) (1.2-4.9) X10*3/uL [place] # (Auto) (0.1-1.2) X10*3/uL Eos # (Auto) (0.0-0.4) X10*3/uL Baso # (Auto) (0.0-0.2) X10*3/uL Abs Immat Gran (auto) (0.00-0.03) X10*3/uL Absolute Neuts (auto) (2.0-8.3) x10*3/uL Absolute Nucleated RBC (0.0-0.012) X10*3/uL Nucleated RBC % (auto) (0.0-0.2) /100WBC Sodium (135-145) mmol/L Potassium (3.3-5.1) mmol/L Chloride (96-108) mmol/L Carbon Dioxide (22-29) mmol/L Anion Gap (12-20) BUN (9-16) mg/dL Creatinine (0.5-1.4) mg/dL Estim Creat Clear Calc Estimated GFR Random Glucose (60-115) mg/dL Lactic Acid (0.5-2.0) mmol/L Calcium (8.4-10.2) mg/dL Urine Color Urine Appearance Urine pH (5.0-9.0) Ur Specific [place] (1.005-1.025) Urine Protein (Neg-Trace) mg/dL Urine Glucose (UA) (Negative) mg/dL Urine Ketones (Negative) mg/dL Urine Blood (Negative) Urine Nitrite (Negative) Ur Leukocyte Esterase (Negative) Urine RBC (0-2) /HPF Urine WBC (0-5) /HPF Urine WBC Clumps Ur Squamous Epith Cells (0-2) /HPF Urine Bacteria (None Seen) Hyaline Casts (0-2) /LPF Chlam trachomat DNA PCR NOT DETECTED (Not Detect.) N.gonorrhoeae DNA (PCR) NOT DETECTED (Not Detect.) Radiology Impression Discussion of test interpretation with radiology: I have reviewed the radiologist's reading. Radiologist Impression: FINDINGS: Normal liver. Normal spleen. Calculus in the mid to distal left ureter measuring 2 mm (series 4, image 525). No hydronephrosis at the time of the study. Mild left perinephric fat stranding. Unremarkable right kidney. Normal adrenal glands. Normal pancreas. No visible cholelithiasis. No biliary dilation. No evidence of bowel obstruction or colitis. Normal appendix. Poorly distended bladder with diffusely thickened paige. No ascites. No pneumoperitoneum. No lymphadenopathy. No acute fracture. No abdominal aortic aneurysm. IMPRESSION: Mid to distal left ureteral calculus. No hydronephrosis at the time of the study. Bladder wall thickening, which could be due to underdistention or cystitis. This document has been electronically signed by: Jose Hooker MD on 01/18/2025 14:49:17 Dictated By: Jose Hooker MD Signed By: <Electronically signed by External Record Review External record reviewed: Inpatient record, Office record, Outpatient record, Prior outpatient labs, Prior outpatient radiology, Primary care record and Outside ED record Discharge Plan Discharge Clinical Impression: Calculus, ureteral, Acute UTI Patient Disposition: Home, Self-Care Instructions: Urinary Tract Infection in Men (ED), Ureteral Stones (ED) Additional Instructions: You were seen in the emergency department due to left flank pain. You were found to have a urinary tract infection as well as a kidney stone. We had given you fluids as well as you dose of antibiotics and a pain medication called Toradol. We discussed with urology who recommends the following treatment. Cefuroxime as a antibiotic, take this as prescribed. Finish the entire course even if your symptoms improve. Flomax is a medication that can help open up the ureters to help pass the kidney stone easier. Toradol as a pain medication, use this as needed. Do not mix with any other NSAIDs including aspirin, naproxen, ibuprofen. Prednisone is a steroid, this will help with inflammation. You may take Tylenol as needed for [id number] pain. Triage nurse from the urology office will follow-up with you on Sunday or Sunday. They will call you. If you do not hear back from their office by Sunday, you may follow-up with them, see their number below. if any new or worsening symptoms occur including but not limited to worsening pain, nausea or vomiting, inability to urinate, please return for re-evaluation. Prescriptions: New tamsulosin [Flomax] 0.4 mg capsule 0.4 mg PO DAILY 10 Days Qty: 10 0RF ketorolac 10 mg tablet 10 mg PO Q8H 3 Days Qty: 9 0RF acetaminophen [Tylenol Extra Strength] 500 mg tablet 1,000 mg PO Q6H PRN (Reason: pain) Qty: 30 0RF cefuroxime axetil 500 mg tablet 500 mg PO BID 7 Days Qty: 14 0RF Referrals: [facility] [Provider Group] Stand Alone Forms: Work/School Release Interventions: ED Discharge Assessment Last Done: 01/18/25 16:01 Discharge Date/Time: 01/18/25 16:12 Print Language: Portuguese
[2025-01-18] MEDS: Ketorolac Tromethamine 15 MG/ML VIAL IVPUSH (13:04)
[2025-01-18] MEDS: ondansetron HCL 4 MG/2 ML VIAL IVPUSH (13:04)
[2025-01-18] MEDS: 0.9 % Sodium Chloride 2,000 ML 999 ML IV (13:05)
[2025-01-18] MEDS: cefTRIAXone sodium 1 GM VIAL IVPUSH (13:25)
[2025-01-18 13:35] LABS: Lactic Acid 0.6 mmol/L (0.5-2.0)
[2025-01-18 15:05] LABS: CT PCR NOT DETECTED (Not Detect.); NG PCR NOT DETECTED (Not Detect.)
[2025-01-18 16:01] VITALS: BP 122/74; PULSE 72; RESP 16; TEMP 37.4; O2SAT 98
== END 2025-01-18 16:12 | disposition home or self-care (01) ==
PROVIDERS: Physician Assistant Medical; Emergency Provider Emergency Medicine
DX: N20.1 Calculus of ureter (principal); N39.0 Urinary tract infection, site not specified
CPT/HCPCS: 36415; 74176; 80048; 81001; 83605; 85025; 87040; 87086; 87088; 87186; 87491; 87591; 96361; 96374; 96375; 99284; J0696; J1885; J2405

== ENCOUNTER → 2025-01-18 14:20 | Outpatient (BNV) | payer SELFPAY | PROVIDERS: Emergency Provider Emergency Medicine; Visit Provider Radiology Diagnostic Radiology | DX: N20.1 Calculus of ureter (principal) | CPT/HCPCS: 74176 ==

== ENCOUNTER 2025-02-19 09:19 | Emergency (ER) | payer SELFPAY ==
[2025-02-19 09:37] VITALS: BP 129/78; PULSE 87; RESP 16; TEMP 36.2; O2SAT 99; BMI 23.5
--- OUTSIDE RECORDS SUMMARY | 2025-02-19 10:54 | XMS_ITS | Clinical Summary ---
Author Organization [employer] [facility] ity Address [address] [place] [address] Care Team Providers Care Room Service Food Service Attendant Name Role Phone Unavailable Primary Care Provider Unavailabl e Social History Tobacco Use Types Packs/Day Years Used Date Smoking Tobacco: Never Assessed Sex and Gender Information Value Date Recorded Sex Assigned at Not on file Legal Sex Male 11:45 PM EST Gender Identity Not on file Sexual Orientation Not on file Plan of Treatment Health Maintenance Due Date Last Done Comments DTaP,Tdap,and Td Vaccines (1 - Tdap) 2016 Hepatitis B Vaccines (1 of 3 - 19+ 3-dose series) 2016 COVID-19 Vaccine (2023-2 5 season) 2024 Influenza Vaccine (#1) 2025 HIB Vaccines Aged Out No longer eligi ble based on patient's age to complete this topic HPV Vaccines Aged Out No longer eligi ble based on patient's age to complete this topic Hepatitis A Vaccines Aged Out No long er eligible based on patient's age to complete this topic IPV Vaccines Aged Out No longer eligi ble based on patient's age to complete this topic MMR Vaccines Aged Out No longer eligi ble based on patient's age to complete this topic Meningococcal ACWY Vaccine Aged Out N o longer eligible based on patient's age to complete this topic Meningococcal B Vaccine Aged Out No l onger eligible based on patient's age to complete this topic Pneumococcal Vaccine: Pediat rics (0 to 5 Years) and At-Risk Patients (6 to 49 Years) Aged Out No longer eligible b ased on patient's age to complete this topic RSV Immunization Patients Un melia 20 months Aged Out No longer eligible b ased on patient's age to complete this topic Varicella Vaccines Aged Out No longer eligible based on patient's age to complete this topic
--- OUTSIDE RECORDS SUMMARY | 2025-02-19 10:54 | XMS_ITS | Encounter Summary ---
Author Organization [facility] Address [address] [place] [address] Phone Care Team Providers Care Site Worker Name Role Phone Lorne Varma MD Primary Care Provider [phone] Encounter Details Date Type Department Care Team (Late st Contact Info) Description 04/24/2012 Documentation EM Family Medicine [address] [place], [place] [phone] Family Medicine, Physician [address] [place] [address] Social History Tobacco Use Types Packs/Day Years Used Date Smoking Tobacco: Never Assessed Sex and Gender Information Value Date Recorded Sex Assigned at Not on file Legal Sex Male 4:51 PM EDT Gender Identity Not on file Sexual Orientation Not on file documented as of this encounter Plan of Treatment Not on file documented as of this encounter Visit Diagnoses Not on filedocumented in this encounter Care Teams Site Worker Relationship Specialty Start Date End Date Lorne Varma MD [address] [place] [address] [place] [address] PCP - General 03/23/17 11/23/22 documented as of this encounter
--- NOTE | 2025-02-19 10:56 | ED.SKABFB ---
HPI - Skin/Abscess/Foreign Bdy General Chief complaint: Skin/Abscess/Foreign Body Stated complaint: rash quest poison yolande Time Seen by Provider: 02/19/25 10:55 Source: patient Mode of arrival: ambulatory Limitations: no limitations History of Present Illness ED Provider: EMMA NEW narrative: 29 yo male with no sig PMH exposed to poision yolande 4 days ago now here with c/o itching rash on LUE, RUE, abdominal wall, trunk, scrotum. He states he was exposed. He has been using calamine without relief. He denies fevers or any other complaints. MD complaint: rash Onset (ago): day(s) (4) Tetanus up to date: yes Location: LUE, RUE and genitals Severity: moderate Quality: pruritic Pain Consistency: constant Relieving factors: none Exacerbating factors: palpation and movement Context: other Associated symptoms: denies other symptoms Treatments prior to arrival: OTC topical medication Related Data Previous Rx's ?Medication ?Instructions ?Recorded acetaminophen 500 mg tablet 1,000 mg (2 x 500 mg) PO Q6H PRN 01/18/25 (Tylenol Extra Strength) pain #30 tabs cefuroxime axetil 500 mg tablet 500 mg PO BID 7 days #14 tabs 01/18/25 ketorolac 10 mg tablet 10 mg PO Q8H 3 days #9 tabs 01/18/25 tamsulosin 0.4 mg capsule (Flomax) 0.4 mg PO DAILY 10 days #10 caps 01/18/25 cephalexin 500 mg capsule 500 mg PO QID 5 days #20 caps 02/19/25 prednisone 10 mg tablet 10 mg PO DIRECTED #41 tabs 02/19/25 Allergies Allergy/AdvReac Type Severity Reaction Status Date / Time bee pollen (bee stings) Allergy Facial Verified 02/19/25 09:39 Swelling Review of Systems Review of Systems: Constitutional : No Fever, No Chills ENT/Mouth : No sore throat, No Rhinorrhea Eyes: No Eye Pain, No Swelling, No Redness Cardiovascular : No Chest Pain, No SOB Respiratory : No Cough, No Sputum Gastrointestinal : No Nausea, No Vomiting, No Diarrhea, No abdominal Pain Genitourinary : No Dysuria, No Hematuria Musculoskeletal : No joint pain, No Myalgias, No Joint Swelling Skin : No Skin Lesions, positive skin rash Neuro : No Weakness, No Numbness, No Headache All other systems reviewed and are negative [facility] Past Medical History Attestation statement: The following information was validated with the patient. Source: old records reviewed Medical History Allergic reaction Social History Social History (Updated 02/19/25 @ 11:15 by Madie Amaral DO) Alcohol intake: current Alcohol intake frequency: does not drink Patient Tobacco Use Status: Never used Tobacco Substance Use Type: Marijuana Physical Exam Vital Signs: Vital Signs: Last Vital Signs Temp 97.2 F 02/19/25 09:37 Pulse 87 02/19/25 09:37 Resp 16 02/19/25 09:37 BP 129/78 02/19/25 09:37 Pulse Ox 99 02/19/25 09:37 O2 Del Method Room Air 02/19/25 09:37 BMI result Body Mass Index 23.5 Appearance: Alert. Oriented X3. No acute distress. Eyes: Pupils equal, round and reactive to light. ENT: Pharynx normal. Neck: Normal inspection. Neck supple. CVS: Normal heart rate and rhythm. Pulses normal. Respiratory: No respiratory distress. Breath sounds normal. Abdomen: Soft and nontender. : contact dermatitis noted lower abdominal wall and onto scrotum, R hip area there is small area of redness/heat Skin: Skin warm and dry. Normal skin color. Normal skin turgor. Extremities: No lower extremity edema. LUE and RUE excoriated mildly swollen linear raised red patches with clear fluid filled blisters Neuro: Oriented X 3. No motor deficit. No sensory deficit. CN2-12 intact Medical Decision Making Medical Decision Making MDM Narrative: 29 yo male with no sig PMH here with c/o poison yolande now with contact dermatitis at this time he will need a prednisone taper. He has no resp issues. He does have mild hip cellulitis but no systemic symptoms will start on cephalexin and discussed reasons to return and worsening symptoms. His left arm was rewrapped for comfort Differential Diagnosis Differential Diagnoses: The differential diagnosis associated with the presentation includes cellulitis, contact dermatitis Admission/Observation Consideration of admission/observation: Escalation of care including admission/observation considered not toxic, stable for DC External Record Review External record reviewed: Outpatient record Prescription Management I considered prescription management with: Antibiotic and Other cephalexin and prednisone with precautions Discharge Plan Discharge Clinical Impression: Poison yolande dermatitis, Cellulitis Patient Disposition: Home, Self-Care Instructions: Cellulitis (ED), Poison Yolande (ED) Additional Instructions: monitor for increased redness, swelling, yellow drainage or any other signs of infection please take all antibiotics okay to use calamine On a cephalosporin?antibiotic, softer bowel movements are to be expected. Call your provider if you move your bowels more than 4 times a day, your bowel movements are almost all liquid, or you get a rash.?? Prescriptions: New prednisone 10 mg tablet 10 mg PO DIRECTED Qty: 41 0RF Rx Instructions: see taper instructions 60mg on day 1-5, 40mg on day 6, 30mg on day 7, 20mg on day 8, 10mg on day 9, 5mg on day 10 cephalexin 500 mg capsule 500 mg PO QID 5 Days Qty: 20 0RF No Action tamsulosin [Flomax] 0.4 mg capsule 0.4 mg PO DAILY 10 Days Qty: 10 0RF ketorolac 10 mg tablet 10 mg PO Q8H 3 Days Qty: 9 0RF acetaminophen [Tylenol Extra Strength] 500 mg tablet 1,000 mg PO Q6H PRN (Reason: pain) Qty: 30 0RF cefuroxime axetil 500 mg tablet 500 mg PO BID 7 Days Qty: 14 0RF Stand Alone Forms: Work/School Release Print Language: Bahamian
--- NOTE | 2025-02-19 11:05 | PC.NURSE ---
patient arm rewrapped with non stick dressing as requested by provider
[2025-02-19 11:12] VITALS: BP 129/78; PULSE 87; RESP 16; TEMP 36.2; O2SAT 99
== END 2025-02-19 11:12 | disposition home or self-care (01) ==
PROVIDERS: Emergency Provider Emergency Medicine
DX: L23.7 Allergic contact dermatitis due to plants, except food (principal); R21 Rash and other nonspecific skin eruption; L03.90 Cellulitis, unspecified
CPT/HCPCS: 99282; 99283

== ENCOUNTER 2025-04-22 21:47 | Emergency (ER) | payer SELFPAY ==
[2025-04-22 21:51] VITALS: BP 107/68; PULSE 97; RESP 17; TEMP 36.5; O2SAT 97; BMI 22.6
--- OUTSIDE RECORDS SUMMARY | 2025-04-22 22:11 | XMS_ITS | Encounter Summary ---
Author Organization [facility] Address [address] [place] [address] Phone Care Team Providers Care Children Counselor Name Role Phone Lorne Varma MD Primary Care Provider [phone] Encounter Details Date Type Department Care Team (Late st Contact Info) Description 07/08/2014 Documentation EM Family Medicine [address] [place], [place] [phone] Family Medicine, Physician [address] [place] [address] Social History Tobacco Use Types Packs/Day Years Used Date Smoking Tobacco: Never Comments:Never smoker Sex and Gender Information Value Date Recorded Sex Assigned at Not on file Legal Sex Male 4:51 PM EDT Gender Identity Not on file Sexual Orientation Not on file documented as of this encounter Plan of Treatment Not on file documented as of this encounter Visit Diagnoses Not on filedocumented in this encounter Care Teams Children Counselor Relationship Specialty Start Date End Date Lorne Varma MD [address] [place] [address] PCP - General 03/23/17 11/23/22 documented as of this encounter
--- OUTSIDE RECORDS SUMMARY | 2025-04-22 22:11 | XMS_ITS | Encounter Summary ---
Author Organization [facility] Address [address] [place] [address] Phone Care Team Providers Care Rubber Printing Machine Operator Name Role Phone Lorne Varma MD Primary Care Provider [phone] Encounter Details Date Type Department Care Team (Late st Contact Info) Description 07/08/2014 Documentation EM Family Medicine [address] [place], [place] [phone] Family Medicine, Physician [address] [place] [address] Social History Tobacco Use Types Packs/Day Years [...] on filedocumented in this encounter Care Teams Rubber Printing Machine Operator Relationship Specialty Start Date End Date Lorne Varma MD [address] [place] [address] PCP - General 03/23/17 11/23/22 documented as of this encounter
--- OUTSIDE RECORDS SUMMARY | 2025-04-22 22:11 | XMS_ITS | Encounter Summary ---
Author Organization [facility] Address [address] [place] [address] Phone Care Team Providers Care Tariff Supervisor Name Role Phone Lorne Varma MD Primary Care Provider [phone] Encounter Details Date Type Department Care Team (Late st Contact Info) Description 04/28/2013 Documentation EM Family Medicine [address] [place], [place] [phone] Family Medicine, Physician [address] [place] [address] Social History Tobacco Use Types Packs/Day Years [...] on filedocumented in this encounter Care Teams Tariff Supervisor Relationship Specialty Start Date End Date Lorne Varma MD [address] [place] [address] [place] [address] PCP - General 03/23/17 11/23/22 documented as of this encounter
--- OUTSIDE RECORDS SUMMARY | 2025-04-22 22:11 | XMS_ITS | Encounter Summary ---
Author Organization [facility] Address [address] [place] [address] Phone Care Team Providers Care Coal Equipment Operator Name Role Phone Lorne Varma MD Primary Care Provider [phone] Encounter Details Date Type Department Care Team (Late st Contact Info) Description 08/25/2015 Documentation EM Family Medicine [address] [place] [address] Family Medicine, Physician [address] [place] [address] Social History Tobacco Use Types Packs/Day Years [...] on filedocumented in this encounter Care Teams Coal Equipment Operator Relationship Specialty Start Date End Date Lorne Varma MD [address] [place] [address] PCP - General 03/23/17 11/23/22 documented as of this encounter
--- OUTSIDE RECORDS SUMMARY | 2025-04-22 22:11 | XMS_ITS | Encounter Summary ---
Author Organization [facility] Address [address] [place] [address] Phone Care Team Providers Care Armoured Corps Officer Name Role Phone Lorne Varma MD Primary Care Provider [phone] Encounter Details Date Type Department Care Team (Late st Contact Info) Description 04/28/2013 Documentation EM Family Medicine [address] [place], [place] [phone] Family Medicine, Physician [address] [place] [address] Social History Tobacco Use Types Packs/Day Years [...] on filedocumented in this encounter Care Teams Armoured [employer] Officer Relationship Specialty Start Date End Date Lorne Varma MD [address] [place] [address] [place] [address] PCP - General 03/23/17 11/23/22 documented as of this encounter
--- OUTSIDE RECORDS SUMMARY | 2025-04-22 22:11 | XMS_ITS | Encounter Summary ---
Author Organization [facility] Address [address] [place] [address] Phone Care Team Providers Care Internal Security Manager Name Role Phone Lorne Varma MD Primary Care Provider [phone] Encounter Details Date Type Department Care Team (Late st Contact Info) Description 08/02/2011 Documentation EM Family Medicine [address] [place], [place] [phone] Family Medicine, Physician [address] [place] [address] Social History Tobacco Use Types Packs/Day Years [...] on filedocumented in this encounter Care Teams Internal Security Manager Relationship Specialty Start Date End Date Lorne Varma MD [address] [place] [address] [place] [address] PCP - General 03/23/17 11/23/22 documented as of this encounter
--- OUTSIDE RECORDS SUMMARY | 2025-04-22 22:11 | XMS_ITS | Encounter Summary ---
Author Organization [facility] Address [address] [place] [address] Phone Care Team Providers Care Flavoring Machine Operator Name Role Phone Lorne Varma MD Primary Care Provider [phone] Encounter Details Date Type Department Care Team (Late st Contact Info) Description 07/08/2014 Documentation EM Family Medicine [address] [place], [place] [phone] Family Medicine, Physician [address] [place] [address] Social History Tobacco Use Types Packs/Day Years [...] on filedocumented in this encounter Care Teams Flavoring Machine Operator Relationship Specialty Start Date End Date Lorne Varma MD [address] [place] [address] PCP - General 03/23/17 11/23/22 documented as of this encounter
--- OUTSIDE RECORDS SUMMARY | 2025-04-22 22:11 | XMS_ITS | Encounter Summary ---
Author Organization [facility] Address [address] [place] [address] Phone Care Team Providers Care Shade Classifier Name Role Phone Lorne Varma MD Primary Care Provider [phone] Encounter Details Date Type Department Care Team (Late st Contact Info) Description 04/28/2013 Documentation EM Family Medicine [address] [place], [place] [phone] Family Medicine, Physician [address] [place] [address] Social History Tobacco Use Types Packs/Day Years [...] on filedocumented in this encounter Care Teams Shade Classifier Relationship Specialty Start Date End Date Lorne Varma MD [address] [place] [address] [place] [address] PCP - General 03/23/17 11/23/22 documented as of this encounter
--- OUTSIDE RECORDS SUMMARY | 2025-04-22 22:11 | XMS_ITS | Clinical Summary ---
Author Organization [facility] Address [address] [place] [address] Phone Care Team Providers Care Roofing Applicator Name Role Phone Unavailable Primary Care Provider Unavailabl e Immunizations Immunization Administration Dates Next Due DTaP 5 07/11/2001, 9,02/10/1998, 998,1997 HPV Vaccine 9 Valent 08/24/2015 HPV, Quadrivalent 07/07/2014,04/24/2013 Hep A, ped/adol 08/24/2015,07/07/2014 Hep B, ped/adol 1997,1997,1997 Hib (PRP-T) 08/16/1998, 8,1997, 998 IPV 07/11/2001 Influenza Split 04/24/2013,04/23/2012,04/14/2010 Influenza, injectable, quadrivalent 07/07/2014 Influenza, injectable, trivalent 04/22/2009 Influenza, intranasal, quadrivalent 08/24/2015 MMR 07/11/2001,08/16/1998 Meningococcal Conj (Menactra) MCV4P 04/22/2009 OPV 02/10/1998,1997,1997 Tdap 04/22/2009 Varicella 04/22/2009,08/16/1998 Family History Relation Name Status Comments Brother Brother: Cancer , brain Father Father: Asthma Maternal Grandfather Materna l grandfather: Heart disease Maternal Grandmother Materna l grandmother: Cancer -breast Mother Mother: MVA, Other No family histo ry of Hyperlipidemia, No family history of Sudden /[place] under age 55, No family history of CVA (Stroke), No family history of Thrombophilia Paternal Grandfather Paterna l grandfather: Diabetes mellitus Paternal Grandmother Paterna l grandmother: Cancer, breast Sister 1 Alive Sister: Alive a nd well, Alive and well, Alive and well Sister 2 Alive Sister: Alive a nd well, Alive and well, Alive and well Sister 3 Alive Sister: Alive a nd well, Alive and well, Alive and well Social History Tobacco Use Types Packs/Day Years Used Date Smoking Tobacco: Never Comments:Never smoker Sex and Gender Information Value Date Recorded Sex Assigned at Not on file Legal Sex Male 4:51 PM EDT Gender Identity Not on file Sexual Orientation Not on file Last Filed Vital Signs Vital Sign Reading Time Taken Comments Blood Pressure 119/78 08/24/2015 12:00 AM EST Pulse 60 08/24/2015 12:00 AM EST Temperature 36.2 C (97.2 F) 08/24/2015 12:00 AM EST Respiratory Rate - - Oxygen Saturation - - Inhaled Oxygen Concentration - - Weight 64 kg (141 lb 3.2 oz) 08/24/2015 12:00 AM EST Height 166.4 cm (5' 5.5 ) 08/24/2015 12:00 AM ES T Body Mass Index 23.14 08/24/2015 12:00 AM EST Plan of Treatment Health Maintenance Due Date Last Done Comments DTaP,Tdap,and Td Vaccines (7 - Td or Tdap) 04/22/2019 04/22/2009, 07/11/2001, 11/15/1998, Additional history exists Influenza Vaccines (#1) 2025 08/24/19 16, 07/07/2014, 04/24/2013, Additional history exists COVID-19 Vaccine ( season) 2025 Hepatitis B Vaccines Completed 1997, 1997, 1997 HIB Vaccines Completed 08/16/1998, 08/1997, 1997, Additional history exists IPV Vaccines Completed 07/11/2001, 08/1997, 1997, Additional history exists MMR Vaccines Completed 07/11/2001, 08/16/1998 Meningococcal Vaccine Aged Out 04/22/2009 No fran juan eligible based on patient's age to complete this topic Varicella Vaccines Completed 04/22/2009, 08/16/1998 HPV Vaccines Completed 08/24/2015, 06/14, 04/24/2013 Hepatitis A Vaccines Completed 08/24/2015, 07/07/20 14 Men B Vaccine Aged Out No longer elig ible based on patient's age to complete this topic Pneumococcal Vaccine Aged Out No long er eligible based on patient's age to complete this topic
--- OUTSIDE RECORDS SUMMARY | 2025-04-22 22:11 | XMS_ITS | Clinical Summary ---
Author Organization [employer] Address [address] [facility] [address] [place] [address] Care Team Providers Care Licensed Pesticide Applicator Name Role Phone Unavailable Primary Care Provider Unavailabl e Social History Tobacco Use Types Packs/Day Years Used Date Smoking Tobacco: Never Assessed Sex and Gender Information Value Date Recorded Sex Assigned at Not on file Legal Sex Male 2:06 AM EST Gender Identity Not on file Sexual Orientation Not on file Plan of Treatment Health Maintenance Due Date Last Done Comments Depression Screening 1997 HIV Screening 1997 SDOH Screening 1997 Disability Screening 1997 Alcohol/Substance Use Screening 2009 Tobacco Screening 2009 Family Planning (PISQ) 2012 HPV Vaccines (1 - Male 3-dos e series) 2012 Hepatitis C Screening 2015 DTaP/Tdap/Td Vaccines (1 - Tdap) 2016 Hepatitis B Vaccines (1 of 3 - 19+ 3-dose series) 2016 COVID-19 Vaccine (1 - 2023-2 5 season) 2025 Influenza Vaccine (#1) 2025 Zoster Vaccines (1 of 2) 2047 RSV Patients and Pa tients Aged 60 years or older (1 - 1-dose 75+ series) 2072 HIB Vaccines Aged Out No longer eligi [...] patient's age to complete this topic Meningococcal Vaccine Aged Out No fran juan eligible based on patient's age to complete this topic Pneumococcal Vaccine: Pediat rics (0 to 5 Years) and At-Risk Patients (6 to 49) Years Aged Out No longer eligible b ased on patient's age to complete this topic RSV under 20 months Aged Out No longe r eligible based on patient's age to complete this topic Rotavirus Vaccines Aged Out No longer eligible based on patient's age to complete this topic
--- OUTSIDE RECORDS SUMMARY | 2025-04-22 22:11 | XMS_ITS | Encounter Summary ---
Author Organization [facility] Address [address] [place] [address] Phone Care Team Providers Care Coin Rolling Machine Operator Name Role Phone Lorne Varma MD Primary Care Provider [phone] Encounter Details Date Type Department Care Team (Late st Contact Info) Description 04/24/2012 Documentation EM Family Medicine [address] [place], [place] [phone] Family Medicine, Physician [address] [place] [address] Social History Tobacco Use Types Packs/Day Years [...] on filedocumented in this encounter Care Teams Coin Rolling Machine Operator Relationship Specialty Start Date End Date Lorne Varma MD [address] [place] [address] [place] [address] PCP - General 03/23/17 11/23/22 documented as of this encounter
--- OUTSIDE RECORDS SUMMARY | 2025-04-22 22:11 | XMS_ITS | Encounter Summary ---
Author Organization [facility] Address [address] [place] [address] Phone Care Team Providers Care Burr Bench Operator Name Role Phone Lorne Varma MD Primary Care Provider [phone] Encounter Details Date Type Department Care Team (Late st Contact Info) Description 03/29/2017 Conversion Encounter [facility] [address] [place] [address] Social History Tobacco Use Types Packs/Day Years [...] on filedocumented in this encounter Care Teams Burr Bench Operator Relationship Specialty Start Date End Date Lorne Varma MD [address] [place] [address] PCP - General 03/23/17 11/23/22 documented as of this encounter
--- OUTSIDE RECORDS SUMMARY | 2025-04-22 22:11 | XMS_ITS | Encounter Summary ---
Author Organization [facility] Address [address] [place] [address] Phone Care Team Providers Care Stunt Driver Name Role Phone Lorne Varma MD Primary Care Provider [phone] Encounter Details Date Type Department Care Team (Late st Contact Info) Description 04/28/2013 Documentation EM Family Medicine [address] [place], [place] [phone] Family Medicine, Physician [address] [place] [address] Social History Tobacco Use Types Packs/Day Years [...] on filedocumented in this encounter Care Teams Stunt Driver Relationship Specialty Start Date End Date Lorne Varma MD [address] [place] [address] [place] [address] PCP - General 03/23/17 11/23/22 documented as of this encounter
--- OUTSIDE RECORDS SUMMARY | 2025-04-22 22:11 | XMS_ITS | Encounter Summary ---
Author Organization [facility] Address [address] [place] [address] Phone Care Team Providers Care Restaurant Inspector Name Role Phone Lorne Varma MD Primary Care Provider [phone] Encounter Details Date Type Department Care Team (Late st Contact Info) Description 04/24/2012 Documentation EM Family Medicine [address] [place], [place] [phone] Family Medicine, Physician [address] [place] [address] Social History Tobacco Use Types Packs/Day Years [...] on filedocumented in this encounter Care Teams Restaurant Inspector Relationship Specialty Start Date End Date Lorne Varma MD [address] [place] [address] [place] [address] PCP - General 03/23/17 11/23/22 documented as of this encounter
--- NOTE | 2025-04-22 23:18 | ED_ITS ---
HPI - General Adult General Chief complaint: Allergic Reaction Stated complaint: poison micah, highly allergic Time Seen by Provider: 04/22/25 22:17 Source: patient, RN notes reviewed and old records reviewed Mode of arrival: ambulatory Limitations: no limitations History of Present Illness ED Provider: Nicola NEW narrative: 29-year-old male presents for evaluation of ?poison micah. ? 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 He states that he developed a rash yesterday as itchy. He has some of the rash in his face, arms, area of groin. He reports that he gets poison micah about once every year. He states that prednisone, hydrocortisone and Zyrtec helped his symptoms typically Related Data Previous Rx's ?Medication ?Instructions ?Recorded acetaminophen 500 mg tablet 1,000 mg (2 x 500 mg) PO Q 6H PRN 01/18/25 (Tylenol Extra Strength) pain #30 tabs cefuroxime axetil 500 mg tablet 500 mg PO BID 7 days # 14 tabs 01/18/25 ketorolac 10 mg tablet 10 mg PO Q8H 3 days #9 tabs 01/18/25 tamsulosin 0.4 mg capsule (Flomax) 0.4 mg PO DAILY 10 days #10 caps 01/18/25 cephalexin 500 mg capsule 500 mg PO QID 5 days #20 cap s 02/19/25 prednisone 10 mg tablet 10 mg PO DIRECTED #41 tab s 02/19/25 cetirizine 10 mg tablet (Zyrtec) 10 mg PO DAILY PRN it courtney #14 tabs 04/22/25 hydrocortisone 2.5 % topical cream 1 appl topical BID 7 days #28 grams 04/22/25 prednisone 10 mg tablet 10 mg PO DIRECTED #42 tab s 04/22/25 Allergies Allergy/AdvReac Type Severity Reaction Status Date / Time bee pollen (bee stings) Allergy Facial Verified 04/22/25 21:53 Swelling poison micah extract Allergy Anaphylaxis Verified 04/22/25 21:53 Review of Systems Integumentary/Breasts: Skin/Breast: Reports pruritus and Reports rash PMFSH Past Medical History Medical History Allergic reaction Social History Social History (Updated 02/19/25 @ 11:15 by Madie Amaral DO) Alcohol intake: current Alcohol intake frequency: does not drink Patient Tobacco Use Status: Never used Tobacco Substance Use Type: Marijuana Advance Directives: No Advance Directives Information Provided: No Do you have a plan to hurt others: No Plan Physical Exam ED Vital Signs: Vital Signs - 24 hr 04/22/25 21:51 Temperature 97.7 F Pulse Rate 97 Respiratory Rate 17 Blood Pressure 107/68 Pulse Oximetry 97 Oxygen Delivery Method Room Air BMI result Body Mass Index 22.6 Const General: healthy appearing, comfortable, no acute distress, alert and awake Nutritional Appearance: well nourished Orientation/consciousness: patient oriented x3 HENMT Head: Yes normocephalic and Yes atraumatic Eyes Other: There is mild bilateral periorbital edema, no significant erythema or wounds/lesions. No conjunctival injection Eyelids: Yes eyelids normal Conjunctivae: conjunctivae normal Sclerae: sclerae normal Corneas: corneas normal Pupils: Equal, round and reactive pupils present EOM: EOMs intact bilaterally Neck Neck: Yes full ROM Resp Effort & Inspection: normal respiratory effort, able to speak in complete sentences and not labored GI Inspection: No distended Palpation (GI): Soft to palpation, not firm, nontender, no guarding and not rigid Skin Other: There is scattered vesicular lesions mostly to the extremities and a linear pattern. General skin exam: elasticity normal Neuro General: patient oriented x3 Cranial nerves: Yes Equal, round and reactive pupils present and Yes Bilaterally intact EOM present Cognition (Neuro): normal cognition Extrem Other: Moving all extremities well without any obvious deformities Medications Administered Discontinued Medications Generic Name Dose Route Start Last Admin Trade Name Freq PRN Reason Stop Dose Admin Loratadine 10 mg 04/22/25 23:18 04/22/25 23:27 Loratadine 10 Mg Tablet PO 04/22/25 23:19 10 mg ONCE ONE Administration Prednisone 60 mg 04/22/25 23:18 04/22/25 23:27 Prednisone 20 Mg Tablet PO 04/22/25 23:19 60 mg ONCE ONE Administration Medical Decision Making Medical Decision Making MDM Narrative: Patient's history exam is most consistent with contact dermatitis or poison micah. Less likely cellulitis that has vesicular. In his diffuse on the extremities where his skin is exposed while at work. We will treat with a prednisone, Zyrtec and hydrocortisone. There was no evidence of infectious process. Less likely scabies based on history and less likely herpes or shingles as in his diffuse Differential Diagnosis Differential Diagnoses: The differential diagnosis associated with the p resentation includes Contact dermatitis Acute dermatitis Rash Cellulitis Chickenpox Discharge Plan Discharge Clinical Impression: Contact dermatitis Patient Disposition: Home, Self-Care Instructions: Contact Dermatitis (ED) Additional Instructions: Use the prednisone taper as prescribed. You may apply hydrocortisone twice a day for a week. Do not apply to the face or groin. Take Zyrtec as needed for itching Prescriptions: New prednisone 10 mg tablet 10 mg PO DIRECTED Qty: 42 0RF Rx Instructions: 60mg x 2 days, 50mg x 2 days, 40mg x 2 days, 30mg x 2 days, 20mg x 2 days, 10mg x 2 days cetirizine [Zyrtec] 10 mg tablet 10 mg PO DAILY PRN (Reason: itching) Qty: 14 0RF hydrocortisone 2.5 % cream 1 appl topical BID 7 Days Qty: 28 0RF No Action tamsulosin [Flomax] 0.4 mg capsule 0.4 mg PO DAILY 10 Days Qty: 10 0RF ketorolac 10 mg tablet 10 mg PO Q8H 3 Days Qty: 9 0RF acetaminophen [Tylenol Extra Strength] 500 mg tablet 1,000 mg PO Q6H PRN (Reason: pain) Qty: 30 0RF cefuroxime axetil 500 mg tablet 500 mg PO BID 7 Days Qty: 14 0RF prednisone 10 mg tablet 10 mg PO DIRECTED Qty: 41 0RF Rx Instructions: see taper instructions 60mg on day 1-5, 40mg on day 6, 30mg on day 7, 20mg on day 8, 10mg on day 9, 5mg on day 10 cephalexin 500 mg capsule 500 mg PO QID 5 Days Qty: 20 0RF Print Language: Turkmen
[2025-04-22 23:25] VITALS: BP 107/68; PULSE 97; RESP 17; TEMP 36.5; O2SAT 97
== END 2025-04-22 23:25 | disposition home or self-care (01) ==
PROVIDERS: Emergency Provider Emergency Medicine
DX: L25.9 Unspecified contact dermatitis, unspecified cause (principal); R21 Rash and other nonspecific skin eruption
CPT/HCPCS: 99282; 99283

== ENCOUNTER 2025-04-28 18:57 | Emergency (ER) | payer SELFPAY ==
--- NOTE | 2025-04-28 19:34 | ED_ITS ---
HPI - Skin/Abscess/Foreign Bdy General Chief complaint: Wound/Laceration Stated complaint: L wrist lac Time Seen by Provider: 04/28/25 20:56 Source: patient, RN notes reviewed and old records reviewed Mode of arrival: ambulatory Limitations: no limitations History of Present Illness ED Provider: Nicola HPI narrative: 29-year-old male presents for evaluation of a laceration to the back of his left wrist. 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 He reports he was cutting PVC pipe at 9:00 a.m. this morning He accidentally cut the back of his left wrist He cleaned himself with soap and water. He finished working that day. He has no pain. He reports his last tetanus was within last 5 years Related Data Previous Rx's ?Medication ?Instructions ?Recorded acetaminophen 500 mg tablet 1,000 mg (2 x 500 mg) PO Q 6H PRN 01/18/25 (Tylenol Extra Strength) pain #30 tabs cefuroxime axetil 500 mg tablet 500 mg PO BID 7 days # 14 tabs 01/18/25 ketorolac 10 mg tablet 10 mg PO Q8H 3 days #9 tabs 01/18/25 tamsulosin 0.4 mg capsule (Flomax) 0.4 mg PO DAILY 10 days #10 caps 01/18/25 cephalexin 500 mg capsule 500 mg PO QID 5 days #20 cap s 02/19/25 prednisone 10 mg tablet 10 mg PO DIRECTED #41 tab s 02/19/25 cetirizine 10 mg tablet (Zyrtec) 10 mg PO DAILY PRN it courtney #14 tabs 04/22/25 hydrocortisone 2.5 % topical cream 1 appl topical BID 7 days #28 grams 04/22/25 prednisone 10 mg tablet 10 mg PO DIRECTED #42 tab s 04/22/25 Allergies Allergy/AdvReac Type Severity Reaction Status Date / Time bee pollen (bee stings) Allergy Facial Verified 04/28/25 19:38 Swelling poison micah extract Allergy Anaphylaxis Verified 04/28/25 19:38 Review of Systems Integumentary/Breasts: Skin/Breast: Reports wounds PMFSH Past Medical History Medical History Allergic reaction Social History Social History (Updated 02/19/25 @ 11:15 by Madie Munir, DO) Alcohol intake: current Alcohol intake frequency: does not drink Patient Tobacco Use Status: Never used Tobacco Smoked in Last 30 Days: No Use of substances other than those prescribed or required for medical reasons: Yes Substance Use Type: Marijuana Advance Directives: No Advance Directives Information Provided: No Physical Exam Vital Signs: Vital Signs: Last Vital Signs Temp 97.2 F 04/28/25 19:35 Pulse 68 04/28/25 19:35 Resp 16 04/28/25 19:35 BP 117/77 04/28/25 19:35 Pulse Ox 99 04/28/25 19:35 O2 Del Method Room Air 04/28/25 19:35 BMI result Body Mass Index 23.2 Const: General: healthy appearing, comfortable, no acute distress, alert and awake Nutritional Appearance: well nourished Orientation/consciousness: patient oriented x3 HEENT: Head: Yes normocephalic and Yes atraumatic Resp: Effort & Inspection: normal respiratory effort, able to speak in complete sentences and not labored Skin: Other: There was a small, 2 cm, half gila river shaped laceration to the dorsal surface of the left forearm. There was no active bleeding. Subcutaneous tissue is exposed but this does not go down to the tendons or fascia level. No evidence of tendon or vascular injury. General skin exam: elasticity normal Neuro: General: patient oriented x3 Cranial nerves: Yes Bilaterally intact EOM present Cognition (Neuro): normal cognition Extrem: Other: The patient has full range of motion with flexion, extension of the left wrist, flexion-extension of all digits of the left hand. Course Course Course Narrative: This is an RME: Additional HPI, ROS, PE not included below will be deferred to primary provider. RME assessment and note performed by: Annie Fofana PA-C This is a 29-year-old male who presents emergency department with concerns of left wrist laceration. Patient accidentally lacerated his left wrist while at work with a knife. Tetanus is up-to-date. Patient with v-shaped 2 centimeter partial-thickness laceration needing suture repair. Wound rewrapped with dressing. Does report numbness and tingling into his fingers however dressing that he presented with was very tight, I suspect that the numbness and tingling should resolved however should be re-evaluated. Medications Administered Discontinued Medications Generic Name Dose Route Start Last Admin Trade Name Freq PRN Reason Stop Dose Admin Lidocaine/Epinephrine 10 ml 04/28/25 21:31 04/28/25 21:42 Lidocaine Hcl 1%/Epi 1:100,000 10 Ml Vial INFILTRATI 04/28/25 21:32 10 ml ONCE ONE Administration Medical Decision Making Medical Decision Making [facility] Narrative: 29-year-old male presents for evaluation of an accidental laceration to his left arm. See procedure note. There was no evidence of tendon, ligament, vasculature were nerve compromise. His tetanus is up-to-date Differential Diagnosis Differential Diagnoses: The differential diagnosis associated with the presentation includes Laceration Skin tear Puncture wound Abrasion Procedures Laceration Laceration 1: Site: upper extremity Side (If applicable): left Size (cm): 2 Description: clean (Half gila river shaped) Depth: simple, single layer Local Anesthetic: lidocaine 1% and with epi Amount of anesthesia used (mL): 5 Pre-repair: wound explored and irrigated extensively Skin layer closed with: nylon Size (cm): 5-0 Number of sutures: 4 Technique: simple, interrupted Discharge Plan Discharge Clinical Impression: Laceration Patient Disposition: Home, Self-Care Instructions: Laceration (ED) Additional Instructions: You had 5 sutures placed that can be removed in 10-14 days. Keep the area clean and dry. You may apply topical antibiotic if you wish Follow up with your primary doctor, return for new or worsening symptoms Prescriptions: No Action tamsulosin [Flomax] 0.4 mg capsule 0.4 mg PO DAILY 10 Days Qty: 10 0RF ketorolac 10 mg tablet 10 mg PO Q8H 3 Days Qty: 9 0RF acetaminophen [Tylenol Extra Strength] 500 mg tablet 1,000 mg PO Q6H PRN (Reason: pain) Qty: 30 0RF cefuroxime axetil 500 mg tablet 500 mg PO BID 7 Days Qty: 14 0RF prednisone 10 mg tablet 10 mg PO DIRECTED Qty: 41 0RF Rx Instructions: see taper instructions 60mg on day 1-5, 40mg on day 6, 30mg on day 7, 20mg on day 8, 10mg on day 9, 5mg on day 10 cephalexin 500 mg capsule 500 mg PO QID 5 Days Qty: 20 0RF prednisone 10 mg tablet 10 mg PO DIRECTED Qty: 42 0RF Rx Instructions: 60mg x 2 days, 50mg x 2 days, 40mg x 2 days, 30mg x 2 days, 20mg x 2 days, 10mg x 2 days cetirizine [Zyrtec] 10 mg tablet 10 mg PO DAILY PRN (Reason: itching) Qty: 14 0RF hydrocortisone 2.5 % cream 1 appl topical BID 7 Days Qty: 28 0RF Print Language: Irish
[2025-04-28 19:35] VITALS: BP 117/77; PULSE 68; RESP 16; TEMP 36.2; O2SAT 99; BMI 23.2
--- OUTSIDE RECORDS SUMMARY | 2025-04-28 20:32 | XMS_ITS | Clinical Summary ---
Author Organization [facility] ity Address [address] [place] [address] Care Team Providers Care Customer Strategy Manager Name Role Phone Unavailable Primary Care Provider [...] of 3 - 19+ 3-dose series) 2016 Depression Screening 08/13/2024 COVID-19 Vaccine (1 - 2023-2 5 season) 2025 Influenza Vaccine (#1) 2025 HIB Vaccines Aged [...]
--- OUTSIDE RECORDS SUMMARY | 2025-04-28 20:32 | XMS_ITS | Clinical Summary ---
Author Organization [employer] Address [address] [facility] [address] [place] [address] Care Team Providers Care Certified Nutritionist Name Role Phone Unavailable Primary Care Provider [...]
[2025-04-28] MEDS: Lidocaine HCl 1%/Epi 1:100,000 10 ML VIAL INFILTRATI (21:42)
[2025-04-28 22:09] VITALS: BP 117/77; PULSE 68; RESP 16; TEMP 36.2; O2SAT 99
== END 2025-04-28 22:09 | disposition home or self-care (01) ==
PROVIDERS: Emergency Provider Student in an Organized Health Care Education/Training Program
DX: S61.512A Laceration without foreign body of left wrist, initial encounter (principal); W26.0XXA Contact with knife, initial encounter; Y93.89 Activity, other specified; Y92.9 Unspecified place or not applicable; Y99.0 Civilian activity done for income or pay; R20.2 Paresthesia of skin
CPT/HCPCS: 12001; 99284; J2004

== ENCOUNTER 2025-05-13 21:42 | Emergency (ER) | payer SELFPAY ==
[2025-05-13 21:46] VITALS: BP 115/64; PULSE 80; RESP 18; TEMP 36.3; O2SAT 98; BMI 22.5
--- OUTSIDE RECORDS SUMMARY | 2025-05-13 22:39 | XMS_ITS | Encounter Summary ---
Author Organization [facility] Address [address] [place] [address] Phone Care Team Providers Care Calender Operator Name Role Phone Lorne Varma MD Primary Care Provider [phone] Encounter Details Date Type Department Care Team (Late st Contact Info) Description 04/28/2013 Documentation EM Family Medicine [address] [place], [place] [phone] Family Medicine, Physician [address] [place] [address] Social History Tobacco Use Types Packs/Day Years [...] on filedocumented in this encounter Care Teams Calender Operator Relationship Specialty Start Date End Date Lorne Varma MD [address] [place] [address] [place] [address] PCP - General 03/23/17 11/23/22 documented as of this encounter
--- OUTSIDE RECORDS SUMMARY | 2025-05-13 22:39 | XMS_ITS | Encounter Summary ---
Author Organization [facility] Address [address] [place] [address] Phone Care Team Providers Care Asset Protection Specialist Name Role Phone Lorne Varma MD Primary Care Provider [phone] Encounter Details Date Type Department Care Team (Late st Contact Info) Description 07/08/2014 Documentation EM Family Medicine [address] [place], [place] [phone] Family Medicine, Physician [address] [place] [address] Social History Tobacco Use Types Packs/Day Years [...] on filedocumented in this encounter Care Teams Asset Protection Specialist Relationship Specialty Start Date End Date Lorne Varma MD [address] [place] [address] PCP - General 03/23/17 11/23/22 documented as of this encounter
--- OUTSIDE RECORDS SUMMARY | 2025-05-13 22:39 | XMS_ITS | Encounter Summary ---
Author Organization [facility] Address [address] [place] [address] Phone Care Team Providers Care Sawyer Cork Slabs Name Role Phone Lorne Varma MD Primary Care Provider [phone] Encounter Details Date Type Department Care Team (Late st Contact Info) Description 04/28/2013 Documentation EM Family Medicine [address] [place], [place] [phone] Family Medicine, Physician [address] [place] [address] Social History Tobacco Use Types Packs/Day Years [...] on filedocumented in this encounter Care Teams Sawyer Cork Slabs Relationship Specialty Start Date End Date Lorne Varma MD [address] [place] [address] [place] [address] PCP - General 03/23/17 11/23/22 documented as of this encounter
--- OUTSIDE RECORDS SUMMARY | 2025-05-13 22:39 | XMS_ITS | Clinical Summary ---
Author Organization [facility] Address [address] [place] [address] Phone Care Team Providers Care Environmental Monitoring Specialist Name Role Phone Unavailable Primary Care Provider [...] of Hyperlipidemia, No family history of Sudden /MT under age 55, No family history of [...]
--- OUTSIDE RECORDS SUMMARY | 2025-05-13 22:39 | XMS_ITS | Encounter Summary ---
Author Organization [facility] Address [address] [place] [address] Phone Care Team Providers Care Pool Attendant Name Role Phone Lorne Varma MD Primary Care Provider [phone] Encounter Details Date Type Department Care Team (Late st Contact Info) Description 04/28/2013 Documentation EM Family Medicine [address] [place], [place] [phone] Family Medicine, Physician [address] [place] [address] Social History Tobacco Use Types Packs/Day Years [...] on filedocumented in this encounter Care Teams Pool Attendant Relationship Specialty Start Date End Date Lorne Varma MD [address] [place] [address] [place] [address] PCP - General 03/23/17 11/23/22 documented as of this encounter
--- OUTSIDE RECORDS SUMMARY | 2025-05-13 22:39 | XMS_ITS | Clinical Summary ---
Author Organization [employer] Address [address] [facility] [address] [place] [address] Care Team Providers Care Asian Art Curator Name Role Phone Unavailable Primary Care Provider [...]
--- OUTSIDE RECORDS SUMMARY | 2025-05-13 22:39 | XMS_ITS | Encounter Summary ---
Author Organization [facility] Address [address] [place] [address] Phone Care Team Providers Care Financial Services Representative Name Role Phone Lorne Varma MD Primary Care Provider [phone] Encounter Details Date Type Department Care Team (Late st Contact Info) Description 04/24/2012 Documentation EM Family Medicine [address] [place], [place] [phone] Family Medicine, Physician [address] [place] [address] Social History Tobacco Use Types Packs/Day Years [...] on filedocumented in this encounter Care Teams Financial Services Representative Relationship Specialty Start Date End Date Lorne Varma MD [address] [place] [address] [place] [address] PCP - General 03/23/17 11/23/22 documented as of this encounter
--- OUTSIDE RECORDS SUMMARY | 2025-05-13 22:39 | XMS_ITS | Encounter Summary ---
Author Organization [facility] Address [address] [place] [address] Phone Care Team Providers Care Product Marketing Director Name Role Phone Lorne Varma MD Primary Care Provider [phone] Encounter Details Date Type Department Care Team (Late st Contact Info) Description 08/02/2011 Documentation EM Family Medicine [address] [place], [place] [phone] Family Medicine, Physician [address] [place] [address] Social History Tobacco Use Types Packs/Day Years [...] on filedocumented in this encounter Care Teams Product Marketing Director Relationship Specialty Start Date End Date Lorne Varma MD [address] [place] [address] PCP - General 03/23/17 11/23/22 documented as of this encounter
--- OUTSIDE RECORDS SUMMARY | 2025-05-13 22:39 | XMS_ITS | Clinical Summary ---
Author Organization [facility] ity Address [address] [place] [address] Care Team Providers Care Production Administrative Assistant Name Role Phone Unavailable Primary Care Provider [...] of 3 - 19+ 3-dose series) 2016 HPV Vaccines (1 - 3-dose SCD M series) 2024 Depression Screening 08/13/2024 COVID-19 Vaccine (1 - 2023-2 5 season) 2025 Influenza Vaccine (#1) 2025 RSV Immunization Adult Patie nts (1 - 1-dose 75+ series) 2072 HIB [...]
--- OUTSIDE RECORDS SUMMARY | 2025-05-13 22:39 | XMS_ITS | Encounter Summary ---
Author Organization [facility] Address [address] [place] [address] Phone Care Team Providers Care Wire Photo Operator News Name Role Phone Lorne Varma MD Primary Care Provider [phone] Encounter Details Date Type Department Care Team (Late st Contact Info) Description 03/29/2017 Conversion Encounter [facility] [place] [address] [place] [address] Social History Tobacco Use Types Packs/Day Years [...] on filedocumented in this encounter Care Teams Wire Photo Operator News Relationship Specialty Start Date End Date Lorne Varma MD [address] [place] [address] PCP - General 03/23/17 11/23/22 documented as of this encounter
--- OUTSIDE RECORDS SUMMARY | 2025-05-13 22:39 | XMS_ITS | Encounter Summary ---
Author Organization [facility] Address [address] [place] [address] Phone Care Team Providers Care Skin Toggler Name Role Phone Lorne Varma MD Primary Care Provider [phone] Encounter Details Date Type Department Care Team (Late st Contact Info) Description 08/25/2015 Documentation EM Family Medicine [address] [place] [address] Family Medicine, Physician [address] [place] [address] Social History Tobacco Use Types Packs/Day Years [...] on filedocumented in this encounter Care Teams Skin Toggler Relationship Specialty Start Date End Date Lorne Varma MD [address] [place] [address] PCP - General 03/23/17 11/23/22 documented as of this encounter
--- OUTSIDE RECORDS SUMMARY | 2025-05-13 22:39 | XMS_ITS | Encounter Summary ---
Author Organization [facility] Address [address] [place] [address] Phone Care Team Providers Care Lead Vulcanizing Operator Name Role Phone Lorne Varma MD Primary Care Provider [phone] Encounter Details Date Type Department Care Team (Late st Contact Info) Description 04/28/2013 Documentation EM Family Medicine [address] [place], [place] [phone] Family Medicine, Physician [address] [place] [address] Social History Tobacco Use Types Packs/Day Years [...] on filedocumented in this encounter Care Teams Lead Vulcanizing Operator Relationship Specialty Start Date End Date Lorne Varma MD [address] [place] [address] [place] [address] PCP - General 03/23/17 11/23/22 documented as of this encounter
--- OUTSIDE RECORDS SUMMARY | 2025-05-13 22:39 | XMS_ITS | Encounter Summary ---
Author Organization [facility] Address [address] [place] [address] Phone Care Team Providers Care Naval [employer]cre[employer] Name Role Phone Lorne Varma MD Primary Care Provider [phone] Encounter Details Date Type Department Care Team (Late st Contact Info) Description 07/08/2014 Documentation EM Family Medicine [address] [place], [place] [phone] Family Medicine, Physician [address] [place] [address] Social History Tobacco Use Types Packs/Day Years [...] on filedocumented in this encounter Care Teams Naval [employer] Relationship Specialty Start Date End Date Lorne Varma MD [address] [place] [address] PCP - General 03/23/17 11/23/22 documented as of this encounter
--- OUTSIDE RECORDS SUMMARY | 2025-05-13 22:39 | XMS_ITS | Encounter Summary ---
Author Organization [facility] Address [address] [place] [address] Phone Care Team Providers Care Check Totaler Name Role Phone Lorne Varma MD Primary Care Provider [phone] Encounter Details Date Type Department Care Team (Late st Contact Info) Description 04/24/2012 Documentation EM Family Medicine [address] [place], [place] [phone] Family Medicine, Physician [address] [place] [address] Social History Tobacco Use Types Packs/Day Years [...] on filedocumented in this encounter Care Teams Check Totaler Relationship Specialty Start Date End Date Lorne Varma MD [address] [place] [address] [place] [address] PCP - General 03/23/17 11/23/22 documented as of this encounter
--- OUTSIDE RECORDS SUMMARY | 2025-05-13 22:39 | XMS_ITS | Encounter Summary ---
Author Organization [facility] Address [address] [place] [address] Phone Care Team Providers Care Vice President Sales Name Role Phone Lorne Varma MD Primary Care Provider [phone] Encounter Details Date Type Department Care Team (Late st Contact Info) Description 07/08/2014 Documentation EM Family Medicine [address] [place], [place] [phone] Family Medicine, Physician [address] [place] [address] Social History Tobacco Use Types Packs/Day Years [...] on filedocumented in this encounter Care Teams Vice President Sales Relationship Specialty Start Date End Date Lorne Varma MD [address] [place] [address] PCP - General 03/23/17 11/23/22 documented as of this encounter
== END 2025-05-13 22:56 | disposition left against medical advice (07) ==
PROVIDERS: Emergency Provider Emergency Medicine
DX: Z53.21 Procedure and treatment not carried out due to patient leaving prior to being seen by health care provider (principal)
CPT/HCPCS: 99281